=== PATIENT | female | born 1970 | race Caucasian/White ===

== ENCOUNTER 2019-05-08 11:10 | Inpatient (IN) ==
--- NOTE | 2019-04-25 08:43 | PAT Medication Instructions ---
Medication Instructions Date of Service April 25, 2019 Home Medications adalimumab [Humira] 40 mg SUBCUT Q14D ascorbic acid (vitamin C) [Vitamin C] 500 mg PO QAM cholecalciferol (vitamin D3) [Vitamin D3] 2,000 unit PO QAM cyanocobalamin (vitamin B-12) [Vitamin B-12] 2,500 mcg SUBLINGUAL QAM cyclobenzaprine 10 mg PO HS diclofenac sodium 75 mg PO BID fluoxetine 10 mg PO QAM furosemide [Lasix] 20 mg PO QAM lisinopril 10 mg PO QAM multivitamin 1 tab PO QAM omeprazole 20 mg PO QAM tramadol 50 mg PO Q6H PRN turmeric root extract 500 mg PO DAILY ASK your surgeon for instructions diclofenac sodium 75 mg PO BID ASK your prescriber and surgeon adalimumab [Humira] 40 mg SUBCUT Q14D STOP taking 2 weeks before surgery (or as soon as possible if surgery is within 2 weeks) turmeric root extract 500 mg PO DAILY DO NOT take the morning of surgery ascorbic acid (vitamin C) [Vitamin C] 500 mg PO QAM cholecalciferol (vitamin D3) [Vitamin D3] 2,000 unit PO QAM cyanocobalamin (vitamin B-12) [Vitamin B-12] 2,500 mcg SUBLINGUAL QAM furosemide [Lasix] 20 mg PO QAM lisinopril 10 mg PO QAM multivitamin 1 tab PO QAM Take morning of surgery With a small sip of water, OTHERWISE NOTHING TO EAT OR DRINK AFTER MIDNIGHT: fluoxetine 10 mg PO QAM omeprazole 20 mg PO QAM tramadol 50 mg PO Q6H PRN (okay to take up to 4 hours prior to surgery if needed) Take evening before surgery cyclobenzaprine 10 mg PO HS tramadol 50 mg PO Q6H PRN (if needed) Other Notes If you have any questions please call us at [phone] or [phone] or [phone] or [phone]
--- NOTE | 2019-04-26 09:04 | Anesthesiology Consultation ---
Date of Service April 26, 2019 Assessment & Plan (1) Encounter for pre-operative examination: - Check test AM DOS Chart Review Chart Review: Pending: Refer to Additional Notes / Consult section (pending p reop testing (labs, c-spine xray)) and Patient seen in Pre Admission Testing Teaching & Discussion Pre-Anesthesia Teaching/Discussion Notes: Instructed NPO after midnight before surgery,except medications with 15 cc of water. Medication instructions provided according to the PAT guidelines. History Surgery Operation Date: 05/08/19 13:05 Proposed Procedures p L4-S1 Decompression, L3-L4 Possible Fusion with Spinal Cord Monitoring - Fermin Richardson DO Height/Weight Height: 5 ft 3 in Weight: 109.8 kg Allergies Allergy/AdvReac Type Severity Reaction Status Date / Time gabapentin Allergy Mild itchy rash Verified 04/20/19 13:25 latex Allergy Mild itchy rash Verified 04/20/19 13:25 Medications Home Medications Medication Instructions Recorded Confirmed Last Taken adalimumab [Humira] 40 mg SUBCUT Q14D 04/20/19 04/20/19 04/02/19 ascorbic acid (vitamin C) [Vitamin 500 mg PO QAM 04/20/19 04/20/19 Unknown C] cholecalciferol (vitamin D3) 2,000 unit PO QAM 04/20/19 04/20/19 Unknown [Vitamin D3] cyanocobalamin (vitamin B-12) 2,500 mcg SUBLINGUAL QAM 04/20/19 04/20/19 Unknown [Vitamin B-12] cyclobenzaprine 10 mg PO HS 04/20/19 04/20/19 Unknown diclofenac sodium 75 mg PO BID 04/20/19 04/20/19 Unknown fluoxetine 10 mg PO QAM 04/20/19 04/20/19 Unknown furosemide [Lasix] 20 mg PO QAM 04/20/19 04/20/19 Unknown lisinopril 10 mg PO QAM 04/20/19 04/20/19 Unknown multivitamin 1 tab PO QAM 04/20/19 04/20/19 Unknown omeprazole 20 mg PO QAM 04/20/19 04/20/19 Unknown tramadol 50 mg PO Q6H PRN 04/20/19 04/20/19 Unknown turmeric root extract 500 mg PO DAILY 04/20/19 04/20/19 Unknown Past Medical History Medical History Ankylosing spondylitis Chronic back pain Fatty liver disease, nonalcoholic GERD (gastroesophageal reflux disease) controlled GI bleed 2017 s/p EGD/colonoscopy with biopsy Hypertension Interstitial cystitis stable Migraine hx Morbid obesity Osteoarthritis PSA (psoriatic arthritis) Rheumatoid arthritis Exercise / Class Metabolic Activity II 4-5 Yardwork/Stairs/Walk up hill Past Family History Family History Aunt FHx: breast cancer, Onset Age: 70 Sister FHx: breast cancer, Onset Age: 36 Family history of diabetes mellitus Father Family history of diabetes mellitus FHx: coronary artery disease Mother Family history of diabetes mellitus Grandmother (Paternal) Family history of diabetes mellitus Grandfather (Paternal) Family history of diabetes mellitus Brother Family history of diabetes mellitus Past Surgical History Surgical History History of breast biopsy History of cholecystectomy History of colonoscopy History of cystoscopy History of dilatation and curettage History of esophagogastroduodenoscopy (EGD) Hx of lumpectomy x2 on right (benign) S/P cervical spinal fusion ACDF x2 levels (unsure of which levels) S/P endometrial ablation S/P lymph node biopsy right axillary (benign) Past Anesthesia History No Hx of Anesthesia Complications (except PONV) and No Family Hx of Anesthesia Complications History of PONV History of PONV (no improvement when scope patch used previously) and Hx of Motion Sickness Social History Smoking Status: Never smoker Do You Dip or Chew Tobacco: No Hx Alcohol Use: No Hx Substance Use: No substance use type: does not use Review of Systems Reflux controlled. Patient denies chest pain, shortness of breath, dyspnea on exertion, cough, wheezing, palpitations. Physical Exam Vital Signs VITALS BP 125/84 P 81 TEMP 97.9 SP02 99%RA RESP 20 PHYSICAL Full neck and c-spine range of motion. Full TMJ range of motion. TMD 4 finger breaths Mallampati Score 1 Dentition: upper partial Lungs: clear throughout to auscultation Cardiac: regular rate and rhythm, no murmurs noted Spine: normal Carotid arteries: negative bruit Extremities: no edema Testing Electrocardiogram Date: 09/13/18 SR at 76bpm. LAD. RBBB. Voltage criteria for LVH. PRWP. Chest X-Ray Date: 09/13/18 Findings: + NAD
[2019-04-26 10:03] LABS: Basophils # (auto) 0.03 K/uL (0-0.2); Basophils % (auto) 0.3 %; Eosinophils # (auto) 0.28 K/uL (0-0.5); Eosinophils % (auto) 2.9 %; Hematocrit (blood only) 40.2 % (37-47); Hemoglobin 13.6 g/dL (12.0-16.0); Immature Granulocytes # (auto) 0.02 K/uL (0.00-0.02); Immature Granulocytes % (auto) 0.2 %; Lymphocytes # (auto) 2.78 K/uL (1.2-3.4); Lymphocytes % (auto) 28.6 %; Mean Corpuscular Hemoglobin 32.2 pg (25-34); Mean Corpuscular Hgb Conc 33.8 g/dL (32-36); Mean Corpuscular Volume 95.3 fL (80-100); Monocytes # (auto) 1.23 K/uL (0.11-0.59); Monocytes % (auto) 12.6 %; Neutrophils # (auto) 5.39 K/uL (1.4-6.5); Neutrophils % (auto) 55.4 %; Platelet Count 230 K/uL (130-400); RDW Coefficient of Variation 13.7 % (11.5-14.5); RDW Standard Deviation 47.6 fL (36.4-46.3); Red Blood Count 4.22 M/uL (4.2-5.4); White Blood Count 9.73 K/uL (4.8-10.8)
[2019-04-26 10:05] LABS: Appearance Urine Clear (Clear); Bilirubin Urine Negative (Negative); Blood Urine Negative (Negative); Color Urine Yellow; Glucose Urine UA Negative (Negative); Ketones Urine Negative (Negative); Leukocyte Esterase Urine Negative (Negative); Nitrite Urine Negative (Negative); Protein Urine Negative (Negative); Specific Gravity Urine 1.022 (1.000-1.030); Urobilinogen Urine Negative (Negative); pH Urine 5.5 (4.5-7.5)
[2019-04-26 10:10] LABS: Calcium 9.3 mg/dl (8.5-10.1); Est GFR (African American) 69.8; Est GFR (Non-African American) 60.2; Potassium 4.6 mmol/L (3.5-5.1)
--- NOTE | 2019-04-26 10:12 | XRay Report ---
LATERAL RADIOGRAPHS OF THE CERVICAL SPINE, INCLUDING FLEXION AND EXTENSION CLINICAL HISTORY: RHEUMATOID ARTHRITIS COMPARISON STUDY: No previous studies for comparison. FINDINGS: Postoperative findings consistent with a C5-C6 and C6-C7 discectomy with anterior fusion ar e noted. There are surgical clips within the lower neck. Alignment of the cervical spine is anatomic without evidence for instability during flexion or extension. Vertebral body heights are maintained. There is no fracture. No suspicious osseous lesion is noted. IMPRESSION: 1. No evidence for cervical spine instability during flexion or extension. 2. Status post C5-C7 anterior discectomy and fusion. Electronically signed by: Juan Ruiz M.D. 04/26/2019 10:11 AM
[2019-04-26 10:18] LABS: Partial Thromboplastin Ratio 0.9; Partial Thromboplastin Time 24.3 Seconds (21.0-31.0); Prothrombin Time 10.1 Seconds (9.0-12.0)
[~2019-05-08 11:10] MED LIST: ACETAMINOPHEN 500 MG TAB PO SCH; CEFAZOLIN 2000MG 2,000 MG/15 ML SYR IV SCH; CeleBREX 200 MG CAP PO SCH; GABAPENTIN 900 MG DOSE PO SCH; LR 15ML/HR IV SCH
[2019-05-08] MEDS ORDERED: MIDAZOLAM HCL 1 MG/ML 2ML VIAL ONE (11:15)
[2019-05-08] MEDS ORDERED: fentaNYL citrate 100 MCG/2 ML VIAL ONE (11:15)
[2019-05-08] MEDS ORDERED: HYDROmorphone INJ 2 MG/ML SYR/VIAL ONE (11:16)
[2019-05-08] MEDS ORDERED: KETAMINE HCL INJ 50 MG/ML 10 ML VIAL ONE (11:16)
[2019-05-08] MEDS ORDERED: GLYCOPYRROLATE 0.2 MG/ML VIAL ONE (11:19)
[2019-05-08] MEDS ORDERED: ROCURONIUM BROMIDE 10 MG/ML 5 ML VIAL ONE (11:19)
[2019-05-08] MEDS ORDERED: LIDOCAINE HCL 2% 2 ML VIAL/AMP(20MG/ML) INFIL ONE (11:19)
[2019-05-08] MEDS ORDERED: ONDANSETRON INJ 2 MG/ML 2 ML VIAL ONE (11:19)
[2019-05-08] MEDS ORDERED: NEOSTIGMINE METHYLSULFATE 1 MG/ML 10ML VIAL ONE (11:19)
[2019-05-08] MEDS ORDERED: DEXAMETHASONE SOD INJ 4 MG/ML VIAL ONE (11:19)
[2019-05-08] MEDS ORDERED: PROPOFOL IV EMULSION 10 MG/ML 20 ML VIAL IV ONE (11:19)
--- NOTE | 2019-05-08 12:18 | History & Physical Bridge Note ---
Date of Service May 08, 2019 History & Physical Bridge Note I have examined the patient, reviewed the History & Physical and in the interval since the performance of the History & Physical I have noted the following changes of clinical significance: no changes noted
--- NOTE | 2019-05-08 12:20 | History & Physical Report ---
Date of Service May 08, 2019 Assessment & Plan (1) Spinal stenosis, lumbar region with neurogenic claudication: L4-S1 decompression and fusion possible L3-4 Present on Admission?: Yes History of Present Illness Chief Complaint: Back and leg pain Primary Care Provider: Kayleigh Lugo DO This is a 48-year-old female who presents with chronic persistent back and leg pain. After failing extensive course of nonoperative care is here for surgical intervention. Allergies Allergy/AdvReac Type Severity Reaction Status Date / Time meloxicam [From Mobic] Allergy Intermediate Rash Verified 05/08/19 12:19 gabapentin Allergy Mild itchy rash Verified 05/08/19 12:18 latex Allergy Mild itchy rash Verified 05/08/19 12:18 Home Medications Home Medications Medication Instructions Recorded Confirmed Type adalimumab [Humira] 40 mg SUBCUT Q14D 04/20/19 04/20/19 History ascorbic acid (vitamin C) [Vitamin 500 mg PO QAM 04/20/19 04/20/19 History C] cholecalciferol (vitamin D3) 2,000 unit PO QAM 04/20/19 04/20/19 History [Vitamin D3] cyanocobalamin (vitamin B-12) 2,500 mcg SUBLINGUAL QAM 04/20/19 04/20/19 History [Vitamin B-12] cyclobenzaprine 10 mg PO HS 04/20/19 04/20/19 History diclofenac sodium 75 mg PO BID 04/20/19 04/20/19 History fluoxetine 10 mg PO QAM 04/20/19 04/20/19 History furosemide [Lasix] 20 mg PO QAM 04/20/19 04/20/19 History lisinopril 10 mg PO QAM 04/20/19 04/20/19 History multivitamin 1 tab PO QAM 04/20/19 04/20/19 History omeprazole 20 mg PO QAM 04/20/19 04/20/19 History tramadol 50 mg PO Q6H PRN 04/20/19 04/20/19 History turmeric root extract 500 mg PO DAILY 04/20/19 04/20/19 History Past Med/Surg History Medical History Ankylosing spondylitis Chronic back pain Fatty liver disease, nonalcoholic GERD (gastroesophageal reflux disease) controlled GI bleed 2018 s/p EGD/colonoscopy with biopsy Hypertension Interstitial cystitis stable Migraine hx Morbid obesity Osteoarthritis PSA (psoriatic arthritis) Rheumatoid arthritis Surgical History History of breast biopsy History of cholecystectomy History of colonoscopy History of cystoscopy History of dilatation and curettage History of esophagogastroduodenoscopy (EGD) Hx of lumpectomy x2 on right (benign) S/P cervical spinal fusion ACDF x2 levels (unsure of which levels) S/P endometrial ablation S/P lymph node biopsy right axillary (benign) Family History Aunt FHx: breast cancer, Onset Age: 70 Sister FHx: breast cancer, Onset Age: 36 Family history of diabetes mellitus Father Family history of diabetes mellitus FHx: coronary artery disease Mother Family history of diabetes mellitus Grandmother (Paternal) Family history of diabetes mellitus Grandfather (Paternal) Family history of diabetes mellitus Brother Family history of diabetes mellitus Social History Preferred Language: [place] Communication Ability: Effective Network Firewall Engineer Required: No Beliefs That Will Affect Care: None Current Living Situation: Alone Other Information That Helps Us Care for You: No Feels Safe at Home: Yes Safety Concerns: Feels Safe At This Time Smoking Status: Never smoker Do You Dip or Chew Tobacco: No ; Second Hand Exposure: No ; Tobacco Cessation Education Requested by Patient: No Hx Alcohol Use: No Hx Substance Use: No Physical Exam Physical Exam: Patient is alert and oriented neurologically intact.
[2019-05-08] MEDS ORDERED: ePHEDrine sulfate 50 MG/ML AMP IV PRN (12:28)
[2019-05-08] MEDS ORDERED: MEPERIDINE HCL 25 MG/ML CARP IV PRN (12:28)
[2019-05-08] MEDS ORDERED: HYDROmorphone INJ 1 MG/ML SYRINGE IV PRN ×2 (12:28→16:29)
[2019-05-08] MEDS ORDERED: LABETALOL HCL IV 5 MG/ML 20ML IV PRN (12:28)
[2019-05-08] MEDS ORDERED: PHENYLEPHRINE 100MCG/ML 5ML SYR IV PRN (12:28)
[2019-05-08] MEDS ORDERED: ONDANSETRON INJ 2 MG/ML 2 ML VIAL IV PRN ×2 (12:28→16:29)
[2019-05-08] MEDS ORDERED: ATROPINE SULFATE 0.1 MG/ML 10ML SYR IV PRN (12:28)
[2019-05-08] MEDS ORDERED: fentaNYL citrate 100 MCG/2 ML VIAL IV PRN (12:28)
[2019-05-08] MEDS ORDERED: BACITRACIN INJ 50,000 UNIT VIAL ONE (12:32)
[2019-05-08] MEDS ORDERED: BUPIVACAINE/EPINEPHRINE 0.5% MPF 1:200,000 30 ML VIAL ONE (12:32)
[2019-05-08] MEDS ORDERED: SCOPOLAMINE 1.5 MG TDSY ONE (12:33)
[2019-05-08] MEDS ORDERED: SCOPOLAMINE 1.5 MG TDSY TD SCH (12:45)
[2019-05-08] MEDS ORDERED: PHENYLEPHRINE 100MCG/ML 5ML SYR ONE (13:11)
[2019-05-08] MEDS ORDERED: FLOSEAL HEMOSTATIC MATRIX 10ML TOP ONE (13:15)
[2019-05-08] MEDS ORDERED: PHENYLEPHRINE HCL 10 MG/ML VIAL ONE (13:44)
[2019-05-08] MEDS ORDERED: ePHEDrine sulfate 50 MG/ML SYR ONE (13:44)
--- NOTE | 2019-05-08 15:02 | Operative Report ---
Post Operative Report Pre & Post Diagnosis Operation Date: 05/08/19 13:05 Pre-Op Diagnosis: Spinal stenosis, lumbar region with neurogenic claudication Morbid obesity Post-Op Diagnosis: Same I identified the patient and participated in the time-out.: Yes Procedure Operation Date: 05/08/19 13:05 Actual Procedures #1 lumbar decompression with bilateral medial facetectomies foraminotomies L3-4 L4-5 L5-S1. #2 posterior spinal fusion L4-5 L5-S1. #3 placed posterior instrumentation L4-5 L5-S1. #4 interbody fusion L4-5 L5-S1. #5 placement of peek cage 12 x 26 mm L4-5 and L5-S1. #6 placement of local autograft posterior gutters. #7 placement infuse collagen sponge, mass graft and posterior gutters and ostial amp in the interbody spaces. Surgeon Fermin Richardson, Validation Architect Trish Alvarado Estimated Blood Loss 10 Findings See Below The patient is 5 foot 3 inches tall weighing over 109 kg with a BMI in excess of 42. The patient's body habitus did add significant technical difficulty throughout the procedure requiring her deepest retractors and longer instruments in order to perform the procedure. This added at least 50% increase in operative time. Specimens None Indications This is a 48-year-old female presents with above-mentioned diagnosis after failing extensive course of nonoperative care she is here for surgical intervention. Description of Procedure Patient was met with identified and informed consent obtained. Patient was then taken to the operative suite underwent intubation placed in the prone position the Tobi table on top of the Gavin frame. All bony prominences well-padded eyes inspected to ensure no external pressure placed upon the peer at this point the lumbar spine was prepped and draped in the normal sterile fashion. Sharp dissection with the assistance of Bovie cautery was performed down to and exposing the lamina and transverse processes of L4-L5 and sacral ala bilaterally. From a caudal to cephalad fashion complete laminectomy of L5 L4 and partial laminectomy of L3 was performed including medial facetectomies and foraminotomies addressing severe stenosis. Pedicle screws were then placed in L4-L5 and S1 levels bilaterally with assistance of fluoroscopy the purposes nathan placed. By way of a trans-foraminal approach on the right a complete discectomy of L5-S1 is performed endplates curetted to subcortical being bone and a 12 x 26 mill meter peek cage filled with osteo-amp bone graft tapped in position. I then proceeded to L4-[address] of a transforaminal approach on the right complete discectomy performed endplates curetted to subcortical bleeding bone and again a 12 x 26 mm peek cage filled with ostium bone graft tapped in position. The rods were then locked in final position bilaterally. The transverse processes of L4 L5 and sacral ala bur to subcortical bleeding bone. Infuse collagen sponge master graft and local autograft placed in the posterior lateral gutters. 15 round JAH drain inserted. Incision was then closed with 1 Vicryl in the fascia 2-0 Vicryl subcutaneous layer and 4-0 Monocryl for final skin closure. Steri-Strip sterile dressings placed. Patient will continue to PACU stable condition. Please note Trish Alvarado present all the entire procedure involved the patient positioning complex portions of the surgery and final skin closure. Lastly spinal cord monitoring was utilized that the procedure no changes noted. I attest to the content of the Intraoperative Record and any orders documented therein. Any exceptions are noted below.
--- NOTE | 2019-05-08 15:02 | Fluoroscopy Report ---
FL lumbar spine 2-3V CLINICAL HISTORY: L4-S1 DECOMPRESSION AND FUSION POSSIBLE L3-L4 COMPARISON STUDY: None FLUOROSCOPY TIME: 26 seconds NUMBER OF FLUOROSCOPIC IMAGES: 2 FINDINGS: Findings consistent laminectomy and fusion from L4 through S1. Disc spaces are present. IMPRESSION: Image intensifier support for lumbar laminectomy and fusion. The above report was generated using voice recognition software. It may contain grammatical, syntax or spelling errors. Electronically signed by: Shayne Chen M.D. 05/08/2019 3:01 PM
--- NOTE | 2019-05-08 15:50 | Anesthesiology Progress Note ---
Date of Service May 08, 2019 Anesthesia Post Procedure Vital Signs Vital Signs: Temp Pulse Pulse Resp BP BP Pulse Ox 05/08/19 15:40 116 H 17 135/84 97 05/08/19 15:30 103 H 17 126/79 97 05/08/19 15:22 36.8 C 100 H 18 135/82 98 05/08/19 12:23 36.7 C 97 H 18 171/90 H 96 Pain Intensity Back: Pain Intensity: 8 Right Hip: Pain Intensity: 8 Transfer of Care Handoff Completed per policy Notes Mental Status: alert / awake / arousable and participated in evaluation Patient Amnestic to Procedure: Yes Nausea / Vomiting: adequately controlled Pain: adequately controlled Airway Patency, RR, SpO2: stable & adequate BP & HR: stable & adequate Hydration State: stable & adequate Anesthetic Complications: no major complications apparent and Pt Satisfied with anesthetic care
[2019-05-08] MEDS ORDERED: CHECK SCOPOLAMINE PATCH PLACEMENT SCH (16:00)
[2019-05-08] MEDS ORDERED: LORazepam 0.5 MG/1 ML VIAL IV PRN (16:29)
[2019-05-08] MEDS ORDERED: DO NOT ADMINISTER PNEUMOCOCCAL VACCINE PRN (16:29)
[2019-05-08] MEDS ORDERED: MAGNESIUM HYDROXIDE SUSP 30 ML UDC PO PRN (16:29)
[2019-05-08] MEDS ORDERED: NON-FORMULARY MEDICATION (Adalimumab [Humira] 40 MG) SQ SCH (16:29)
[2019-05-08] MEDS ORDERED: FAMOTIDINE 20 MG TAB PO PRN (16:29)
[2019-05-08] MEDS ORDERED: ONDANSETRON 4 MG OD TAB PO PRN (16:29)
[2019-05-08] MEDS ORDERED: LORazepam 0.5 MG TAB PO PRN (16:29)
[2019-05-08] MEDS ORDERED: BISACODYL 10 MG SUPP PR PRN (16:29)
[2019-05-08] MEDS ORDERED: METOCLOPRAMIDE HCL INJ 5 MG/ML 2 ML VIAL IV PRN (16:29)
[2019-05-08] MEDS ORDERED: HYDROmorphone INJ 0.5 MG/0.5 ML SYR IV PRN (16:29)
[2019-05-08] MEDS ORDERED: ALUMINUM/MAGNESIUM SUSP 30 ML UDC PO PRN (16:29)
[2019-05-08] MEDS ORDERED: SOD PHOSPHATE/SOD BIPHOSPHATE ENEMA 132 ML BTL PR PRN (16:29)
[2019-05-08] MEDS ORDERED: ACETAMINOPHEN 1,000 MG/100 ML VIAL IV PRN (16:29)
[2019-05-08] MEDS ORDERED: NALOXONE HCL 0.4 MG/1 ML VIAL/CARP IV PRN (16:29)
[2019-05-08] MEDS ORDERED: TRAMADOL HCL 50 MG TABLET PO PRN (16:29)
[2019-05-08] MEDS ORDERED: DO NOT ADMINISTER FLU VACCINE PRN (16:29)
[2019-05-08] MEDS ORDERED: PROMETHAZINE HCL 12.5 MG in SODIUM CHLORIDE 0.9% 50 ML IV PRN (16:29)
[2019-05-08] MEDS: KETOROLAC TROMETHAMINE 15 MG/ML VIAL IV SCH (17:48)
[2019-05-08] MEDS: LACTATED RINGER'S 1,000 ML IV SCH ×2 (19:51→21:43)
[2019-05-08] MEDS: CEFAZOLIN 2000MG 2,000 MG/15 ML SYR IV SCH (20:21)
[2019-05-08] MEDS: DOCUSATE SODIUM/SENNA 50/8.6MG TAB PO SCH (20:23)
[2019-05-08] MEDS: CYCLOBENZAPRINE HCL 10 MG TAB PO SCH (20:37)
[2019-05-09] MEDS: KETOROLAC TROMETHAMINE 15 MG/ML VIAL IV SCH ×3 (00:07→11:58)
[2019-05-09] MEDS: LACTATED RINGER'S 1,000 ML IV SCH (02:17)
[2019-05-09] MEDS: CEFAZOLIN 2000MG 2,000 MG/15 ML SYR IV SCH (05:09)
[2019-05-09] MEDS: ACETAMINOPHEN 500 MG TAB PO PRN (05:23)
[2019-05-09] MEDS: POLYETHYLENE (MIRALAX) 17 GM PACK PO SCH ×3 (05:24→17:20)
[2019-05-09 05:36] LABS: Hematocrit (blood only) 35.4 % (37-47); Hemoglobin 11.7 g/dL (12.0-16.0); Immature Granulocytes # (auto) 0.04 K/uL (0.00-0.02); Immature Granulocytes % (auto) 0.3 %; Lymphocytes # (auto) 1.63 K/uL (1.2-3.4); Lymphocytes % (auto) 12.2 %; Mean Corpuscular Hemoglobin 31.9 pg (25-34); Mean Corpuscular Hgb Conc 33.1 g/dL (32-36); Mean Corpuscular Volume 96.5 fL (80-100); Mean Platelet Volume 9.7 fL (7.4-10.4); Monocytes # (auto) 0.64 K/uL (0.11-0.59); Monocytes % (auto) 4.8 %; Neutrophils # (auto) 11.09 K/uL (1.4-6.5); Neutrophils % (auto) 82.7 %; Platelet Count 238 K/uL (130-400); RDW Coefficient of Variation 14.2 % (11.5-14.5); RDW Standard Deviation 49.7 fL (36.4-46.3); Red Blood Count 3.67 M/uL (4.2-5.4)
[2019-05-09 06:04] LABS: BUN Creatinine Ratio 16.1 (10-20); Calcium 8.3 mg/dl (8.5-10.1); Creatinine Clr Calc Pharmacy 105.1 ml/min; Est GFR (African American) 105.1; Est GFR (Non-African American) 90.7; Potassium 4.1 mmol/L (3.5-5.1)
--- NOTE | 2019-05-09 07:43 | Anesthesiology Progress Note ---
Date of Service May 09, 2019 Anesthesia Post Procedure Vital Signs Vital Signs: Temp Pulse Pulse Resp BP BP Pulse Ox 05/09/19 07:15 37.0 C 89 18 104/67 99 05/09/19 03:30 36.6 C 83 16 100/66 97 05/08/19 22:58 36.6 C 97 H 16 104/70 96 05/08/19 19:41 36.4 C L 103 H 17 116/79 98 05/08/19 18:18 36.5 C 101 H 16 106/71 99 05/08/19 17:24 36.4 C L 103 H 17 131/73 97 05/08/19 16:52 36.5 C 102 H 16 102/68 99 05/08/19 16:20 36.5 C 108 H 16 121/71 98 05/08/19 16:01 36.8 C 108 H 15 118/73 98 05/08/19 15:50 102 H 17 129/73 96 05/08/19 15:40 116 H 17 135/84 97 05/08/19 15:30 103 H 17 126/79 97 05/08/19 15:22 36.8 C 100 H 18 135/82 98 05/08/19 12:23 36.7 C 97 H 18 171/90 H 96 Pain Intensity Back: Pain Intensity: 8 Right Hip: Pain Intensity: 8 Notes Mental Status: alert / awake / arousable and participated in evaluation Patient Amnestic to Procedure: Yes Nausea / Vomiting: adequately controlled Pain: adequately controlled Airway Patency, RR, SpO2: stable & adequate BP & HR: stable & adequate Hydration State: stable & adequate Anesthetic Complications: no major complications apparent and Pt Satisfied with anesthetic care
[2019-05-09] MEDS: PANTOprazole 40 MG TAB PO SCH (08:47)
[2019-05-09] MEDS: FUROSEMIDE 20 MG TAB PO SCH (08:47)
[2019-05-09] MEDS: MULTIVITAMIN TAB PO SCH (08:47)
[2019-05-09] MEDS: ASCORBIC ACID 500 MG TAB PO SCH (08:48)
[2019-05-09] MEDS: FLUOXETINE HCL 10 MG CAP PO SCH (08:48)
[2019-05-09] MEDS: CHOLECALCIFEROL 1,000 UNITS TAB PO SCH (08:48)
[2019-05-09] MEDS: CYANOCOBALAMIN (VITAMIN B-12) 2,500 MCG TAB.SUBL SL SCH (08:48)
[2019-05-09] MEDS: LISINOPRIL 10 MG TAB PO SCH (08:49)
--- NOTE | 2019-05-09 09:58 | Orthopedic Progress Note ---
Date of Service May 09, 2019 Assessment & Plan (1) Spinal stenosis, lumbar region with neurogenic claudication: Patient is status post lumbar decompression and fusion will initiate physical therapy monitor her JAH output hopefully discharge home next few days. Present on Admission?: Yes Subjective Back pain controlled leg pain markedly improved. She is describing some numbness to the right foot. Physical Exam Physical Exam: On exam she has regional strength testing. She appears comfortable. Results & Data Vital Signs (Past 12 Hours) Vital Signs Temp Pulse Resp BP BP Pulse Ox 05/09/19 07:15 37.0 C 89 18 104/67 99 05/09/19 03:30 36.6 C 83 16 100/66 97 05/08/19 22:58 36.6 C 97 H 16 104/70 96
[2019-05-09] MEDS: OXYCODONE HCL IR 5 MG TAB (IMMEDIATE RELEASE) PO PRN ×3 (11:58→20:48)
[2019-05-09] MEDS: DOCUSATE SODIUM/SENNA 50/8.6MG TAB PO SCH (20:45)
[2019-05-09] MEDS: CYCLOBENZAPRINE HCL 10 MG TAB PO SCH (20:48)
[2019-05-10] MEDS: POLYETHYLENE (MIRALAX) 17 GM PACK PO SCH ×5 (00:15→23:42)
[2019-05-10] MEDS: OXYCODONE HCL IR 5 MG TAB (IMMEDIATE RELEASE) PO PRN ×5 (00:56→23:45)
[2019-05-10] MEDS: ACETAMINOPHEN 500 MG TAB PO PRN ×2 (00:56→16:21)
[2019-05-10] MEDS: FUROSEMIDE 20 MG TAB PO SCH (07:33)
[2019-05-10] MEDS: PANTOprazole 40 MG TAB PO SCH (07:34)
[2019-05-10] MEDS: MULTIVITAMIN TAB PO SCH (07:34)
[2019-05-10] MEDS: FLUOXETINE HCL 10 MG CAP PO SCH (07:34)
[2019-05-10] MEDS: ASCORBIC ACID 500 MG TAB PO SCH (07:35)
[2019-05-10] MEDS: CYANOCOBALAMIN (VITAMIN B-12) 2,500 MCG TAB.SUBL SL SCH (07:35)
[2019-05-10] MEDS: CHOLECALCIFEROL 1,000 UNITS TAB PO SCH (07:36)
[2019-05-10] MEDS: LISINOPRIL 10 MG TAB PO SCH (07:36)
--- NOTE | 2019-05-10 14:13 | Orthopedic Progress Note ---
Date of Service May 10, 2019 Assessment & Plan (1) Spinal stenosis, lumbar region with neurogenic claudication: Patient is progressing appropriately. We will assess her in a.m. and most likely discharge home tomorrow. Present on Admission?: Yes Subjective Patient's back pain is controlled leg symptoms improving. Physical Exam Physical Exam: Patient is in the chair at the bedside. She is more comfortable. She demonstrates some deficit right dorsiflexion compared to the left. Otherwise strength intact. Results & Data Vital Signs (Past 12 Hours) Vital Signs Temp Pulse Resp BP Pulse Ox 05/10/19 06:13 36.7 C 93 H 16 96/64 L 95
[2019-05-10] MEDS: CYCLOBENZAPRINE HCL 10 MG TAB PO SCH (21:01)
[2019-05-10] MEDS: DOCUSATE SODIUM/SENNA 50/8.6MG TAB PO SCH (21:02)
[2019-05-11] MEDS: OXYCODONE HCL IR 5 MG TAB (IMMEDIATE RELEASE) PO PRN ×2 (03:58→08:48)
[2019-05-11] MEDS ORDERED: Nursing to Pharmacy Communication ONE (04:49)
[2019-05-11] MEDS: LISINOPRIL 10 MG TAB PO SCH (08:44)
[2019-05-11] MEDS: CHOLECALCIFEROL 1,000 UNITS TAB PO SCH (08:44)
[2019-05-11] MEDS: FUROSEMIDE 20 MG TAB PO SCH (08:44)
[2019-05-11] MEDS: PANTOprazole 40 MG TAB PO SCH (08:44)
[2019-05-11] MEDS: ASCORBIC ACID 500 MG TAB PO SCH (08:44)
[2019-05-11] MEDS: FLUOXETINE HCL 10 MG CAP PO SCH (08:44)
[2019-05-11] MEDS: MULTIVITAMIN TAB PO SCH (08:44)
[2019-05-11] MEDS: CYANOCOBALAMIN (VITAMIN B-12) 2,500 MCG TAB.SUBL SL SCH (08:44)
--- NOTE | 2019-05-11 10:13 | Discharge Summary ---
Date of Service May 11, 2019 Admission HPI Per Admitting Provider This is a 48-year-old female who presents with chronic persistent back and leg pain. After failing extensive course of nonoperative care is here for surgical intervention. Principal Diagnosis Lumbar spinal stenosis with neurogenic claudication Discharge Data Allergies Allergy/AdvReac Type Severity Reaction Status Date / Time meloxicam [From Mobic] Allergy Intermediate Rash Verified 05/08/19 12:19 gabapentin Allergy Mild itchy rash Verified 05/08/19 12:18 latex Allergy Mild itchy rash Verified 05/08/19 12:18 Consultations 05/08/19 16:29 Consult Case Management - Discharge Planning Routine Procedures Performed Operation Date: 05/08/19 13:05 Actual Procedures p L4-L5, L5-S1 Decompression and Fusion, Interbody Fusion L4-L5, L5-S1, with Spinal Cord Monitoring(Not Applicable) - Fermin Richardson DO Ordered Studies 05/08/19 13:05 FL fluoroscopy <1hr Routine FL lumbar spine 2-3V Routine Hospital Course (1) Spinal stenosis, lumbar region with neurogenic claudication: Patient underwent multilevel lumbar decompression fusion tolerated as well as taken orthopedic for postoperative. Postop day 1 she is up and ambulating she struggling with some weakness to the right dorsiflexion. She did however progressed nicely through postop day #2 postop day #3 JAH drain decreased probably. Pain well controlled. Subsequent discharge home. Discharge orders instructions from the chart for further review. Total Time Total Time Spent Total Time Spent (In Minutes): 20 minutes Discharge Plan Discharge Items Patient Disposition: Home - Self-Care Reason For Visit: Unspecified Thoracic, Thoracolumbar and Lumbosacra Discharge Diagnosis: Lumbar spinal stenosis with radiculopathy Activity: As commented below Non-emergency contact: Primary Care Provider Call non-emergency contact if: you have any medication questions Follow-up/Referrals: Kayleigh Lugo DO [Primary Care Provider] - Diet: Regular Addtl Attending Provider Instructions: ACTIVITY RECOMMENDATIONS: SELF CARE INSTRUCTIONS AFTER THORACIC/LUMBAR FUSIONS 1. You may walk to your tolerance. It is good exercise for your legs and back. Expect some back and intermittent leg aches and pains. 2. You may perform "counter-top" level activities (make a sandwich, gladys with a project, etc.). 3. No bending or lifting of more than 10 pounds or back twisting of any nature (roll like a log when turning in bed). 4. You may ride in a car for 20-30 minutes at a time. No driving until after your first visit with your doctor. 5. Frequent changes of position and restricting sitting to 30 minutes at a time will help limit the amount of back spasms and stiffness you may experience. 6. You may discontinue the use of ambulatory aids (cane, crutches, etc.) once your strength and confidence allow. 7. You may space engineer the shower and let water strike your incision when you arrive home at least once daily. Do not take a tub bath, sit in a hot tub or go into a swimming pool until after your first recheck in the office. SPECIAL CARE INSTRUCTIONS: VERY IMPORTANT TO READ AND REVIEW A. Your surgical incision has been closed with a cosmetic suture under the skin that will dissolve in about 6 weeks. In 14 days, you can use a pair of clean scissors and cut the suture that is left outside of the skin at the ends of your incision. 1. The small skin tapes can be removed 7 days after surgery if they have not fallen off by that point. 2. You may keep the wound open to air as much as possible to promote healing after post-op day number 5 unless told otherwise by your doctor. 3. If you think the wound looks like it is becoming infected (redness or worsening drainage) and/or you are experiencing fever, chill or worsening back pain and muscle spasms, contact the office so that we may evaluate you as soon as possible. B. Complications are uncommon, but please contact us if you have any signs or symptoms of: 1. wound infection (fever higher than 102.5 degrees F, redness, separation of wound, drainage, or increasing pain from the incision) 2. blood clots in legs (pain, swelling, redness and warmth in legs) 3. urinary tract infection (fever higher than 102.5 degrees F, burning upon urination or increased frequency of urination) 4. nerve problems (inability to walk on your toes or heels, numbness, loss of bowel or bladder control) 5. any other symptoms that concern you C. Please call the office at if you have any concerns or questions about your operation or recovery. D. No smoking! Smoking drastically decreases the chance of a solid fusion. E. Do not take any anti-inflammatory medications (Indocin, Advil, Motrin, Aspirin, Naprosyn, etc.) as these may inhibit the chance of a solid fusion. Tylenol is okay to take for pain. MANAGING PAIN AFTER SPINAL SURGERY 1. Narcotic medication is intended for short-term use and will be provided for surgical pain. Surgical pain usually lasts for a period of 4-6 weeks. Narcotic medication includes Percocet, Vicodin, Darvocet, Tylenol #3 or Lortab. 2. Longer-term pain is more appropriately treated with non-narcotic medication such as Tylenol ES. 3. Muscle spasm is not appropriately treated with narcotics. Muscle relaxers such as Soma, Flexeril or Skelaxin can be used along with Tylenol ES. 4. Remember that we all live with some "aches and pains". This is not unusual or uncommon after an injury or as we get older. a. Back pain is expected and may include muscle spasms for 4 to 6 weeks after surgery. The pain should gradually improve. If the pain worsens for no apparent reason, please contact the office. b. Intermittent leg pain may also be experienced and should not be concerned about unless it worsens for no apparent reason. If so, please contact the office. 5. We will provide appropriate medication within the normal guidelines of their prescribed use. We will also be very cautious and aware of potential abuse and extended duration of patients' medication needs. a. Pain medications are for your comfort and to assist with sleep and rest so that the tissue can heal. They are not provided in order to return to normal activity and should not be used through the day. To do so or worsening pain at night can result from ongoing tissue damage and development of tolerance to the prescribed medicine. 6. Please allow 2-3 days to process refills. Prescriptions will not be mailed but must be picked up at the office. FOLLOW UP VISIT: Keep your scheduled follow-up appointment. Any questions, please call the office at . Pending Studies at Discharge: No Stand-Alone Forms: [facility] [place], Opioid Pain Management, Smoking Cessation Medications and DC Order Prescriptions: New tramadol 50 mg tablet 50 mg PO Q6H PRN (Reason: pain, moderate) Qty: 30 RF: 0 oxycodone 5 mg tablet 5 mg PO Q6H PRN (Reason: pain, severe) Qty: 30 RF: 0 Continued multivitamin Tablet 1 tab PO QAM RF: 0 cyclobenzaprine 10 mg Tablet 10 mg PO HS RF: 0 cyanocobalamin (vitamin B-12) [Vitamin B-12] 2,500 mcg Tablet, Sublingual 2,500 mcg SUBLINGUAL QAM RF: 0 fluoxetine [Sarafem] 10 mg Tablet 10 mg PO QAM RF: 0 tramadol 50 mg Tablet 50 mg PO Q6H PRN (Reason: Pain) RF: 0 lisinopril 10 mg Tablet 10 mg PO QAM RF: 0 omeprazole 20 mg Capsule,Delayed Release(Dr/Ec) 20 mg PO QAM RF: 0 diclofenac sodium 75 mg Tablet,Delayed Release (Dr/Ec) 75 mg PO BID RF: 0 furosemide [Lasix] 20 mg Tablet 20 mg PO QAM RF: 0 ascorbic acid (vitamin C) [Vitamin C] 500 mg Tablet Extended Release 500 mg PO QAM RF: 0 cholecalciferol (vitamin D3) [Vitamin D3] 2,000 unit Capsule 2,000 unit PO QAM RF: 0 turmeric root extract 500 mg Capsule 500 mg PO DAILY RF: 0 Humira 40 mg/0.8 mL Syringe Kit 40 mg SUBCUT Q14D RF: 0 Discharge Orders: Discharge Order (Routine); Ordered 05/11/19 Ordered By: Fermin Chris/Other Patient Handouts: Surgery Prevent DVT After Admission Data Admit Date/Time: 05/08/19 15:06 Attending Provider: Fermin Richardson Admit Provider: Fermin Richardson Primary Care Provider: Kayleigh Lugo Other Interventions: Discharge Summary Assessment (RN) Last Done: 05/11/19 09:57
== END 2019-05-11 13:17 | disposition home or self-care (01) | DRG 454 ==
LOC: ASU 11:10 → 3E 15:06

== ENCOUNTER 2020-02-21 06:09 | Inpatient (IN) ==
--- NOTE | 2020-02-05 09:10 | PAT Medication Instructions ---
Medication Instructions Date of Service February 05, 2020 Home Medications Medication Instructions Recorded tramadol 50 mg PO Q6H PRN #30 tab 05/09/19 cyclobenzaprine 10 mg PO HS diclofenac sodium 75 mg PO BID fluoxetine [Sarafem] 10 mg PO QAM furosemide [Lasix] 20 mg PO QAM lisinopril 10 mg PO QAM multivitamin 1 tab PO QAM tramadol 50 mg PO Q6H PRN certolizumab pegol [Cimzia] 400 mg SUBCUT MONTHLY minocycline 100 mg PO BID ondansetron HCl [Zofran] 4 mg PO Q6H PRN pantoprazole 40 mg PO QAM pregabalin [Lyrica] 75 mg PO BID ASK your surgeon for instructions diclofenac sodium 75 mg PO BID ASK your prescriber and surgeon certolizumab pegol [Cimzia] 400 mg SUBCUT MONTHLY minocycline 100 mg PO BID DO NOT take the morning of surgery furosemide [Lasix] 20 mg PO QAM lisinopril 10 mg PO QAM multivitamin 1 tab PO QAM Take morning of surgery With a small sip of water, OTHERWISE NOTHING TO EAT OR DRINK AFTER MIDNIGHT: fluoxetine [Sarafem] 10 mg PO QAM tramadol 50 mg PO Q6H PRN (okay to take up to 4 hours prior to surgery if needed) ondansetron HCl [Zofran] 4 mg PO Q6H PRN (if needed) pantoprazole 40 mg PO QAM pregabalin [Lyrica] 75 mg PO BID Take evening before surgery cyclobenzaprine 10 mg PO HS tramadol 50 mg PO Q6H PRN (if needed) ondansetron HCl [Zofran] 4 mg PO Q6H PRN (if needed) pregabalin [Lyrica] 75 mg PO BID Other Notes If you have any questions please call us at [phone] or [phone] or [phone] or [phone]
--- NOTE | 2020-02-06 12:10 | Anesthesiology Consultation ---
Date of Service February 06, 2020 Assessment & Plan (1) Encounter for pre-operative examination: Per PAT assessment on 02/05: Travel screen negative. No known COVID-19 positive contacts (father tested "last week" d/t fever, chills- results were negative, dx UTI. No current COVID-19 related symptoms. Surgeon arranging preop COVID testing. Awaiting results. - Hx PONV: scopolamine patch ordered for AM DOS Chart Review Chart Review: Acceptable Risk for Surgery and Patient seen in Pre Admission Testing Teaching & Discussion Pre-Anesthesia Teaching/Discussion Notes: Instructed NPO after midnight before surgery,except medications with 15 cc of water. Medication instructions provided according to the [facility] guidelines. History Surgery Operation Date: 02/21/20 07:45 Proposed Procedures p L3-L4 Decompression and Fusion, L4-S1 Hardware Removal - Fermin Richardson, Height/Weight Height: 5 ft 3 in Weight: 119.7 kg Allergies Allergy/AdvReac Type Severity Reaction Status Date / Time meloxicam [From Mobic] Allergy Intermediate Rash Verified 01/31/20 13:21 gabapentin Allergy Mild itchy rash Verified 01/31/20 13:21 latex Allergy Mild itchy rash Verified 01/31/20 13:21 Medications Home Medications Medication Instructions Recorded Confirmed Last Taken cyclobenzaprine 10 mg PO HS 04/20/19 01/31/20 05/06/19 diclofenac sodium 75 mg PO BID 04/20/19 01/31/20 05/06/19 fluoxetine [Sarafem] 10 mg PO QAM 04/20/19 01/31/20 05/07/19 09:00 furosemide [Lasix] 20 mg PO QAM 04/20/19 01/31/20 05/07/19 09:00 lisinopril 10 mg PO QAM 04/20/19 01/31/20 05/07/19 09:00 multivitamin 1 tab PO QAM 04/20/19 01/31/20 05/01/19 tramadol 50 mg PO Q6H PRN #30 tab 05/09/19 01/31/20 Unknown certolizumab pegol [Cimzia] 400 mg SUBCUT MONTHLY 01/31/20 01/31/20 Unknown minocycline 100 mg PO BID 01/31/20 01/31/20 Unknown ondansetron HCl [Zofran] 4 mg PO Q6H PRN 01/31/20 01/31/20 Unknown pantoprazole 40 mg PO QAM 01/31/20 01/31/20 Unknown pregabalin [Lyrica] 75 mg PO BID 01/31/20 01/31/20 Unknown Past Medical History Medical History Acne on Minocycline Ankylosing spondylitis Chronic back pain Fatty liver disease, nonalcoholic GERD (gastroesophageal reflux disease) controlled GI bleed 2017 s/p EGD/colonoscopy with biopsy Hypertension Interstitial cystitis stable Migraine hx Morbid obesity Osteoarthritis PSA (psoriatic arthritis) Rheumatoid arthritis Exercise / Class Metabolic Activity III < 4 Walking/Shop/Light housework Past Family History Family History Aunt FHx: breast cancer, Onset Age: 70 Sister FHx: breast cancer, Onset Age: 36 Family history of diabetes mellitus Father Family history of diabetes mellitus FHx: coronary artery disease Mother Family history of diabetes mellitus Slow to wake up after anesthesia Grandmother (Paternal) Family history of diabetes mellitus Grandfather (Paternal) Family history of diabetes mellitus Brother Family history of diabetes mellitus Past Surgical History Surgical History History of breast biopsy History of cholecystectomy History of colonoscopy History of cystoscopy History of dilatation and curettage History of esophagogastroduodenoscopy (EGD) History of lumbar fusion L4-S1 decompression/fusion: 05/08/19: Grade view 1, Webb#2, ett 7.5 at [facility] Hx of lumpectomy x2 on right (benign) S/P cervical spinal fusion ACDF x2 levels (unsure of which levels); limited ROM to right side S/P endometrial ablation S/P lymph node biopsy right axillary (benign) Past Anesthesia History No Hx of Anesthesia Complications (except PONV) Mother: "slow to wake" History of PONV History of PONV (multiple times, no issues when scope patch used/with most recent lumbar fusion 04/2019) and Hx of Motion Sickness Social History Smoking Status: Never smoker Do You Dip or Chew Tobacco: No Hx Alcohol Use: No Hx Substance Use: No substance use type: does not use Review of Systems Did have previous wheezing (not current issue). Patient denies chest pain, shortness of breath, fever, chills, cough, palpitations. Physical Exam Vital Signs VITALS BP 126/84 P 81 TEMP 98.0 SP02 98%RA RESP 18 PHYSICAL Full neck and c-spine range of motion. Full TMJ range of motion. TMD 4 finger breaths Mallampati Score 1 Dentition: upper partial Lungs: clear throughout to auscultation Cardiac: regular rate and rhythm, no murmurs noted Spine: normal Carotid arteries: negative bruit Extremities: non-pitting edema Testing Laboratory Results 02/06/20 12:37 02/06/20 12:37 PT 11.0 Seconds (9.0-12.0) 02/06/20 12:37 INR 1.0 (0.9-1.1) 02/06/20 12:37 APTT 27.0 Seconds (21.0-31.0) 02/06/20 12:37 Urine Color Yellow 02/06/20 12:37 Urine Appearance Clear (Clear) 02/06/20 12:37 Urine pH 5.0 (4.5-7.5) 02/06/20 12:37 Ur Specific [place] 1.021 (1.000-1.030) 02/06/20 12:37 Urine Protein Negative (Negative) 02/06/20 12:37 Urine Glucose (UA) Negative (Negative) 02/06/20 12:37 Urine Ketones Negative (Negative) 02/06/20 12:37 Urine Nitrite Negative (Negative) 02/06/20 12:37 Ur Leukocyte Esterase Negative (Negative) 02/06/20 12:37 Blood Type A Positive 02/06/20 12:37 Antibody Screen NEGATIVE 02/06/20 12:37 Electrocardiogram Date: 02/06/20 NSR at 80bpm. LAD. RBBB. unconfirmed report. Chest X-Ray Date: 02/06/20 Findings: + NAD Cervical Spine Date: 04/26/19 No evidence for cervical spine instability during flexion or extension. Status post C5-C7 anterior discectomy and fusion.
--- NOTE | 2020-02-06 13:46 | XRay Report ---
XR chest Pre-admission PA/Lat CLINICAL HISTORY: pat preoperative COMPARISON STUDY: No previous studies for comparison. FINDINGS: The bones soft tissues and hemidiaphragms are normal. The cardiomediastinal silhouette is n ormal. The lungs are clear. The pulmonary vasculature is normal. IMPRESSION: Negative chest. ACT 112: Negative or not required by law. The above report was generated using voice recognition software. It may contain grammatical, syntax or spelling errors. Electronically signed by: Shayne Chen M.D. 02/06/2020 1:45 PM
[2020-02-06 14:04] LABS: Basophils # (auto) 0.02 K/uL (0-0.2); Basophils % (auto) 0.2 %; Eosinophils # (auto) 0.27 K/uL (0-0.5); Eosinophils % (auto) 3.2 %; Hematocrit (blood only) 38.9 % (37-47); Hemoglobin 12.9 g/dL (12.0-16.0); Immature Granulocytes # (auto) 0.02 K/uL (0.00-0.02); Immature Granulocytes % (auto) 0.2 %; Lymphocytes # (auto) 2.56 K/uL (1.2-3.4); Mean Corpuscular Hemoglobin 31.1 pg (25-34); Mean Corpuscular Hgb Conc 33.2 g/dL (32-36); Mean Corpuscular Volume 93.7 fL (80-100); Mean Platelet Volume 10.9 fL (7.4-10.4); Monocytes # (auto) 0.63 K/uL (0.11-0.59); Monocytes % (auto) 7.4 %; Neutrophils # (auto) 5.04 K/uL (1.4-6.5); Platelet Count 213 K/uL (130-400); RDW Coefficient of Variation 13.3 % (11.5-14.5); RDW Standard Deviation 45.5 fL (36.4-46.3); Red Blood Count 4.15 M/uL (4.2-5.4); White Blood Count 8.54 K/uL (4.8-10.8)
[2020-02-06 14:17] LABS: BUN Creatinine Ratio 21.5 (10-20); Calcium 8.7 mg/dl (8.5-10.1); Creatinine Clr Calc Pharmacy 76.6 ml/min; Est GFR (African American) 67.8; Est GFR (Non-African American) 58.5; Potassium 4.1 mmol/L (3.5-5.1)
[2020-02-06 15:14] LABS: Appearance Urine Clear (Clear); Bilirubin Urine Negative (Negative); Blood Urine Negative (Negative); Color Urine Yellow; Glucose Urine UA Negative (Negative); Ketones Urine Negative (Negative); Leukocyte Esterase Urine Negative (Negative); Nitrite Urine Negative (Negative); Protein Urine Negative (Negative); Specific Gravity Urine 1.021 (1.000-1.030); Urobilinogen Urine Negative (Negative)
--- NOTE | 2020-02-08 08:39 | Electrocardiogram Report ---
Test Reason : Blood Pressure : / mmHG Vent. Rate : 080 BPM Atrial Rate : 080 BPM P-R Int : 162 ms QRS Dur : 154 ms QT Int : 464 ms P-R-T Axes : 060 -39 014 degrees QTc Int : 535 ms Normal sinus rhythm Left axis deviation Right bundle branch block Abnormal ECG No previous ECGs available Confirmed by Omari Flowers ([id number]) on 02/08/2020 8:39:12 AM Referred By: Fermin Richardson Confirmed By:Omari Flowers
[2020-02-21] MEDS ORDERED: MIDAZOLAM HCL 1 MG/ML 2ML VIAL ONE (06:39)
[2020-02-21] MEDS ORDERED: LIDOCAINE HCL 2% 2 ML VIAL/AMP(20MG/ML) INFIL ONE (06:39)
[2020-02-21] MEDS ORDERED: ONDANSETRON INJ 2 MG/ML 2 ML VIAL ONE (06:39)
[2020-02-21] MEDS ORDERED: PROPOFOL IV EMULSION 10 MG/ML 20 ML VIAL IV ONE (06:39)
[2020-02-21] MEDS ORDERED: DEXAMETHASONE SOD INJ 4 MG/ML VIAL ONE (06:39)
[2020-02-21] MEDS ORDERED: fentaNYL citrate 100 MCG/2 ML VIAL ONE (06:39)
[2020-02-21] MEDS ORDERED: HYDROmorphone INJ 2 MG/ML SYR/VIAL ONE (06:39)
[2020-02-21] MEDS ORDERED: LARYING-O-JET KIT (LTA) ONE (06:53)
[2020-02-21] MEDS ORDERED: BACITRACIN INJ 50,000 UNIT VIAL ONE (07:13)
[2020-02-21] MEDS ORDERED: BUPIVACAINE/EPINEPHRINE 0.25% 1:200,000 30 ML VIAL ONE (07:13)
--- NOTE | 2020-02-21 07:38 | History & Physical Bridge Note ---
Date of Service February 21, 2020 History & Physical Bridge Note I have examined the patient, reviewed the History & Physical and in the interval since the performance of the History & Physical I have noted the following changes of clinical significance: no changes noted
--- NOTE | 2020-02-21 07:39 | History & Physical Report ---
Date of Service February 21, 2020 Assessment & Plan (1) Spinal stenosis, lumbar region with neurogenic claudication: Admission and Anticipated Discharge Date Admission Date: L3-L4 decompression fusion, L4-S1 hardware removal History of Present Illness Chief Complaint: Back and leg pain Primary Care Provider: Kayleigh Lugo DO This is a 49-year-old female who presents with chronic persistent back and leg pain. After failing course of nonoperative care she is here for surgical intervention. Allergies Allergy/AdvReac Type Severity Reaction Status Date / Time gabapentin Allergy Mild itchy rash Verified 02/21/20 06:50 latex Allergy Mild itchy rash Verified 02/21/20 06:50 Home Medications Home Medications Medication Instructions Recorded Confirmed Type cyclobenzaprine 10 mg PO HS 04/20/19 02/21/20 History diclofenac sodium 75 mg PO BID 04/20/19 02/21/20 History fluoxetine [Sarafem] 10 mg PO QAM 04/20/19 02/21/20 History furosemide [Lasix] 20 mg PO QAM 04/20/19 02/21/20 History lisinopril 10 mg PO QAM 04/20/19 02/21/20 History multivitamin 1 tab PO QAM 04/20/19 02/21/20 History tramadol 50 mg PO Q6H PRN #30 tab 05/09/19 02/21/20 Rx certolizumab pegol [Cimzia] 400 mg SUBCUT MONTHLY 01/31/20 02/21/20 History minocycline 100 mg PO BID 01/31/20 02/21/20 History ondansetron HCl [Zofran] 4 mg PO Q6H PRN 01/31/20 02/21/20 History pantoprazole [Protonix] 40 mg PO QAM 01/31/20 02/21/20 History pregabalin [Lyrica] 75 mg PO BID 01/31/20 02/21/20 History Past Med/Surg History Medical History Acne on Minocycline Ankylosing spondylitis Chronic back pain Fatty liver disease, nonalcoholic GERD (gastroesophageal reflux disease) controlled GI bleed 2018 s/p EGD/colonoscopy with biopsy Hypertension Interstitial cystitis stable Migraine hx Morbid obesity Osteoarthritis PSA (psoriatic arthritis) Rheumatoid arthritis Surgical History History of breast biopsy History of cholecystectomy History of colonoscopy History of cystoscopy History of dilatation and curettage History of esophagogastroduodenoscopy (EGD) History of lumbar fusion L4-S1 decompression/fusion: 05/08/19: Grade view 1, Webb#2, ett 7.5 at [facility] Hx of lumpectomy x2 on right (benign) S/P cervical spinal fusion ACDF x2 levels (unsure of which levels); limited ROM to right side S/P endometrial ablation S/P lymph node biopsy right axillary (benign) Family History Aunt FHx: breast cancer, Onset Age: 70 Sister FHx: breast cancer, Onset Age: 36 Family history of diabetes mellitus Father Family history of diabetes mellitus FHx: coronary artery disease Mother Family history of diabetes mellitus Slow to wake up after anesthesia Grandmother (Paternal) Family history of diabetes mellitus Grandfather (Paternal) Family history of diabetes mellitus Brother Family history of diabetes mellitus Social History Smoking Status: Never smoker Second Hand Exposure: No; Do You Dip or Chew Tobacco: No; Hx Alcohol Use: No Hx Substance Use: No Preferred Language: [place] Islander Communication Ability: Effective Clay Puddler Required: No Beliefs That Will Affect Care: None Current Living Situation: Significant Other Feels Safe at Home: Yes Safety Concerns: Feels Safe At This Time Physical Exam Physical Exam: Patient is alert and oriented neurologically intact. Heart regular rate and rhythm. Lungs clear to auscultation. Results & Data ([facility]) Vital Signs (Past 12 Hours) Vital Signs Temp Pulse Resp BP Pulse Ox 02/21/20 06:58 36.9 C 97 H 16 151/102 H 99
[2020-02-21] MEDS ORDERED: PHENYLEPHRINE HCL 10 MG/ML VIAL ONE (09:27)
[2020-02-21] MEDS ORDERED: ROCURONIUM BROMIDE 10 MG/ML 5 ML VIAL IV ONE ×2 (09:27→09:28)
[2020-02-21] MEDS ORDERED: FLOSEAL HEMOSTATIC MATRIX 10ML TOP ONE (09:39)
[2020-02-21] MEDS ORDERED: GLYCOPYRROLATE 0.2 MG/ML VIAL ONE (09:42)
[2020-02-21] MEDS ORDERED: NEOSTIGMINE METHYLSULFATE 1 MG/ML 10ML VIAL ONE (09:42)
--- NOTE | 2020-02-21 09:49 | Operative Report ---
Post Operative Report Pre & Post Diagnosis Operation Date: 02/21/20 07:45 Pre-Op Diagnosis: Spinal Stenosis, Lumbar Region with Neurogenic Claudication Morbid obesity Post-Op Diagnosis: Spinal Stenosis, Lumbar Region with Neurogenic Claudication Morbid obesity I identified the patient and participated in the time-out.: Yes Procedure Operation Date: 02/21/20 07:45 Actual Procedures p L3-L4 Decompression and Fusion with Insertion of Interbody, Application of OsteoAmp and Bone Morphogenetic Protein, L4-S1 Hardware Removal, Spinal Cord Monitoring(Not Applicable) - Fermin Richardson DO Surgeon Fermin Richardson DO Competitive Intelligence Manager Trish Alvarado Estimated Blood Loss 400 Findings See Below Patient is 5 foot 3 inches tall weighing over 120 kg with a BMI in excess of 46. Patient's body habitus did add significant technical difficulty requiring her deepest retractors and longus instruments in order to perform her procedure. This added at least 50% increase to the operative time as well as adding increased postoperative care. Specimens None Indications This is a 49-year-old female known to me the presents with above-mentioned diagnosis after failing extensive course of nonoperative care is here for the above-mentioned procedure. Description of Procedure Patient was met with identified informed consent obtained. Patient was then taken to the operative suite underwent an patient placed in a prone position the Tobi table on top of the Gavin frame. All bony prominences well-padded eyes inspected to ensure no external pressure placed upon them. This point the lumbar spine was prepped and draped in a sterile fashion. Sharp dissection with assistance of Bovie cautery was performed down to and exposing the lamina and transverse processes of L3 and instrumentation at L4-L5 and S1 levels bilaterally. Then proceeded move the hardware bilaterally explore the fusion mass noting it to be maturing. Then performed a complete laminectomy of L3 including bilateral medial facetectomies and foraminotomies addressing severe spinal stenosis. Pedicle screws were then placed in L3-L4-L5 and S1 levels bilaterally with assistance of fluoroscopy and appropriate size nathan placed. By way the transforaminal approach on the right a complete discectomy of L3-4 was performed endplates curetted to subcortical bleeding bone and a 10 x 22 mm peek cage filled with osteo-amp bone graft tapped in position. Rods were then locked in final position bilaterally. The transverse processes of L3 and L4 were burred to subcortical bleeding bone. Infuse collagen sponge master graft local autograft placed in the posterior gutters. 15 round JAH drain inserted. The incision was then closed with 1 Vicryl in the fascia 2-0 Vicryl subcutaneously and 4 Monocryl for final skin closure. Steri-Strips dressings placed. Patient waken taken PACU stable addition. Please note spinal cord monitoring was utilized at the procedure no changes noted. Lastly Trish Alvarado was present at the entire procedure about the patient positioning complex portions of the surgery and final skin closure. I attest to the content of the Intraoperative Record and any orders documented therein. Any exceptions are noted below.
--- NOTE | 2020-02-21 10:22 | Fluoroscopy Report ---
LUMBAR SPINE, INTRAOPERATIVE FLUOROSCOPY HISTORY: L3-S1 decompression and fusion. FLUOROSCOPY TIME: 11 seconds. FINDINGS: Intraoperative fluoroscopy was provided for the lumbar spine. 2 fluoroscopic spot images we re obtained. Posterior decompression fusion from L3 through S1 with pedicle screws and rods. The hard allen appears intact. IMPRESSION: Fluoroscopy provided for a L3-S1 posterior decompression and fusion. ACT 112: Negative or not required by law. Electronically signed by: Louis Friedman M.D. 02/21/2020 10:21 AM
[2020-02-21] MEDS ORDERED: fentaNYL citrate 100 MCG/2 ML VIAL IV PRN (10:32)
[2020-02-21] MEDS ORDERED: HYDROmorphone INJ 1 MG/ML SYRINGE IV PRN ×2 (10:32→11:06)
[2020-02-21] MEDS ORDERED: ONDANSETRON INJ 2 MG/ML 2 ML VIAL IV PRN ×2 (10:32→11:06)
[2020-02-21] MEDS ORDERED: ePHEDrine sulfate 50 MG/ML AMP IV PRN (10:32)
[2020-02-21] MEDS ORDERED: ATROPINE SULFATE 0.1 MG/ML 10ML SYR IV PRN (10:32)
[2020-02-21] MEDS ORDERED: METOPROLOL TARTRATE 1 MG/ML VIAL IV STA (10:36)
[2020-02-21] MEDS ORDERED: METOPROLOL TARTRATE 1 MG/ML VIAL IV ONE (10:37)
--- NOTE | 2020-02-21 10:52 | Anesthesiology Progress Note ---
Date of Service February 21, 2020 Anesthesia Post Procedure Vital Signs Vital Signs: Temp Pulse Pulse Pulse Resp BP BP 02/21/20 10:45 90 86 18 146/76 H 133/73 02/21/20 10:39 105 H 144/72 H 02/21/20 10:35 103 H 15 144/72 H 02/21/20 10:25 101 H 18 143/85 H 02/21/20 10:15 99 H 19 116/55 L 02/21/20 10:06 37.2 C 97 H 14 147/85 H 02/21/20 06:58 36.9 C 97 H 16 151/102 H Pulse Ox 02/21/20 10:45 98 02/21/20 10:39 02/21/20 10:35 99 02/21/20 10:25 99 02/21/20 10:15 96 02/21/20 10:06 100 02/21/20 06:58 99 Pain Intensity Bilateral Lower Back: Pain Intensity: 0 Transfer of Care Handoff Completed per policy Notes Mental Status: alert / awake / arousable and participated in evaluation Patient Amnestic to Procedure: Yes Nausea / Vomiting: adequately controlled Pain: adequately controlled Airway Patency, RR, SpO2: stable & adequate BP & HR: stable & adequate Hydration State: stable & adequate Anesthetic Complications: no major complications apparent and Pt Satisfied with anesthetic care
[2020-02-21] MEDS ORDERED: MAGNESIUM HYDROXIDE SUSP 30 ML UDC PO PRN (11:06)
[2020-02-21] MEDS ORDERED: DO NOT ADMINISTER FLU VACCINE PRN (11:06)
[2020-02-21] MEDS ORDERED: TRAMADOL HCL 50 MG TABLET PO PRN (11:06)
[2020-02-21] MEDS ORDERED: DO NOT ADMINISTER PNEUMOCOCCAL VACCINE PRN (11:06)
[2020-02-21] MEDS ORDERED: ALUMINUM/MAGNESIUM SUSP 30 ML UDC PO PRN (11:06)
[2020-02-21] MEDS ORDERED: PROMETHAZINE HCL 12.5 MG in SODIUM CHLORIDE 0.9% 50 ML IV PRN (11:06)
[2020-02-21] MEDS ORDERED: LORazepam 0.5 MG/1 ML VIAL IV PRN (11:06)
[2020-02-21] MEDS ORDERED: METOCLOPRAMIDE HCL INJ 5 MG/ML 2 ML VIAL IV PRN (11:06)
[2020-02-21] MEDS ORDERED: LORazepam 0.5 MG TAB PO PRN (11:06)
[2020-02-21] MEDS ORDERED: bisacodyL 10 MG SUPP PR PRN (11:06)
[2020-02-21] MEDS ORDERED: HYDROmorphone INJ 0.5 MG/0.5 ML SYR IV PRN (11:06)
[2020-02-21] MEDS ORDERED: FAMOTIDINE 20 MG TAB PO PRN (11:06)
[2020-02-21] MEDS ORDERED: ACETAMINOPHEN 1,000 MG/100 ML VIAL IV PRN (11:06)
[2020-02-21] MEDS ORDERED: NALOXONE HCL 0.4 MG/1 ML VIAL/CARP IV PRN (11:06)
[2020-02-21] MEDS ORDERED: SOD PHOSPHATE/SOD BIPHOSPHATE ENEMA 132 ML BTL PR PRN (11:06)
[2020-02-21] MEDS ORDERED: ACETAMINOPHEN 500 MG TAB PO PRN (11:06)
[2020-02-21] MEDS ORDERED: ONDANSETRON 4 MG OD TAB PO PRN (11:06)
[2020-02-21] MEDS: LACTATED RINGER'S 1,000 ML IV SCH ×2 (11:13→17:51)
[2020-02-21] MEDS: KETOROLAC 30 MG/ML VIAL IV SCH ×3 (14:10→23:18)
[2020-02-21] MEDS: Scopolamine CHECK PATCH PLACEMENT SCH ×2 (15:25→23:19)
[2020-02-21] MEDS: CEFAZOLIN 2000MG 2,000 MG/15 ML SYR IV SCH ×2 (16:53→23:18)
[2020-02-21] MEDS: PREGABALIN 75 MG CAP PO SCH (20:29)
[2020-02-21] MEDS: OXYCODONE HCL IR 5 MG TAB (IMMEDIATE RELEASE) PO PRN (20:29)
[2020-02-21] MEDS: DOCUSATE SODIUM/SENNA 50/8.6MG TAB PO SCH (20:29)
[2020-02-22] MEDS: LACTATED RINGER'S 1,000 ML IV SCH (01:59)
[2020-02-22] MEDS: KETOROLAC 30 MG/ML VIAL IV SCH (05:48)
[2020-02-22] MEDS: POLYETHYLENE (MIRALAX) 17 GM PACK PO SCH ×3 (05:49→18:16)
[2020-02-22 06:09] LABS: Hematocrit (blood only) 31.3 % (37-47); Hemoglobin 10.4 g/dL (12.0-16.0); Immature Granulocytes # (auto) 0.04 K/uL (0.00-0.02); Immature Granulocytes % (auto) 0.3 %; Lymphocytes # (auto) 1.82 K/uL (1.2-3.4); Lymphocytes % (auto) 11.5 %; Mean Corpuscular Hemoglobin 30.7 pg (25-34); Mean Corpuscular Hgb Conc 33.2 g/dL (32-36); Mean Corpuscular Volume 92.3 fL (80-100); Mean Platelet Volume 10.3 fL (7.4-10.4); Monocytes # (auto) 1.08 K/uL (0.11-0.59); Monocytes % (auto) 6.8 %; Neutrophils # (auto) 12.94 K/uL (1.4-6.5); Neutrophils % (auto) 81.4 %; Platelet Count 208 K/uL (130-400); RDW Coefficient of Variation 13.3 % (11.5-14.5); RDW Standard Deviation 45.1 fL (36.4-46.3); Red Blood Count 3.39 M/uL (4.2-5.4); White Blood Count 15.88 K/uL (4.8-10.8)
[2020-02-22 06:41] LABS: BUN Creatinine Ratio 22.6 (10-20); Calcium 8.7 mg/dl (8.5-10.1); Creatinine Clr Calc Pharmacy 92.8 ml/min; Est GFR (African American) 85.3; Est GFR (Non-African American) 73.6; Potassium 4.4 mmol/L (3.5-5.1)
[2020-02-22] MEDS: Scopolamine CHECK PATCH PLACEMENT SCH ×3 (08:20→21:28)
[2020-02-22] MEDS: OXYCODONE HCL IR 5 MG TAB (IMMEDIATE RELEASE) PO PRN ×3 (08:21→18:10)
[2020-02-22] MEDS: MULTIVITAMIN TAB PO SCH (08:21)
[2020-02-22] MEDS: FLUOXETINE HCL 10 MG CAP PO SCH (08:22)
[2020-02-22] MEDS: PANTOprazole 40 MG TAB PO SCH (08:22)
[2020-02-22] MEDS: lisinopriL 10 MG TAB PO SCH (08:25)
[2020-02-22] MEDS: PREGABALIN 75 MG CAP PO SCH ×2 (08:25→21:28)
[2020-02-22] MEDS: FUROSEMIDE 20 MG TAB PO SCH (08:25)
--- NOTE | 2020-02-22 10:27 | Orthopedic Progress Note ---
Date of Service February 22, 2020 Assessment & Plan (1) Spinal stenosis, lumbar region with neurogenic claudication: Admission and Anticipated Discharge Date Admission Date: February 21, 2020 Subjective Back pain controlled leg symptoms markedly improved. Physical Exam Physical Exam: Patient is in the chair at the bedside. Is good strength testing. Appears comfortable. Results & Data ([facility]) Vital Signs (Past 12 Hours) Vital Signs Temp Pulse Resp BP Pulse Ox 02/22/20 08:20 128/87 02/22/20 06:58 36.7 C 106 H 16 96/61 L 99 02/22/20 03:47 36.8 C 97 H 16 102/66 95 02/21/20 23:35 36.8 C 94 H 18 112/68 97
[2020-02-22] MEDS: DOCUSATE SODIUM/SENNA 50/8.6MG TAB PO SCH (21:28)
[2020-02-23] MEDS: OXYCODONE HCL IR 5 MG TAB (IMMEDIATE RELEASE) PO PRN ×2 (02:35→07:41)
[2020-02-23] MEDS: Scopolamine CHECK PATCH PLACEMENT SCH (07:30)
[2020-02-23] MEDS: FUROSEMIDE 20 MG TAB PO SCH (08:46)
[2020-02-23] MEDS: PREGABALIN 75 MG CAP PO SCH (08:46)
[2020-02-23] MEDS: PANTOprazole 40 MG TAB PO SCH (08:47)
[2020-02-23] MEDS: lisinopriL 10 MG TAB PO SCH (08:47)
[2020-02-23] MEDS: MULTIVITAMIN TAB PO SCH (08:47)
[2020-02-23] MEDS: FLUOXETINE HCL 10 MG CAP PO SCH (08:47)
[2020-02-23] MEDS ORDERED: DEXAMETHASONE SOD PHOSPHATE 8 MG in SYRINGE 0 ML IV SCH (09:00)
--- NOTE | 2020-02-23 10:18 | Discharge Summary ---
Date of Service February 23, 2020 Admission HPI Per Admitting Provider This is a 49-year-old female who presents with chronic persistent back and leg pain. After failing course of nonoperative care she is here for surgical intervention. Principal Diagnosis Lumbar spinal stenosis with neurogenic claudication Discharge Data Allergies Allergy/AdvReac Type Severity Reaction Status Date / Time gabapentin Allergy Mild itchy rash Verified 02/21/20 06:50 latex Allergy Mild itchy rash Verified 02/21/20 06:50 Consultations 02/21/20 11:06 Consult Case Management - Discharge Planning Routine Procedures Performed Operation Date: 02/21/20 07:45 Actual Procedures p L3-L4 Decompression and Fusion with Insertion of Interbody, Application of OsteoAmp and Bone Morphogenetic Protein, L4-S1 Hardware Removal, Spinal Cord Monitoring(Not Applicable) - Fermin Richardson DO Ordered Studies 02/21/20 07:45 FL fluoroscopy <1hr Routine FL lumbar spine 2-3V Routine Hospital Course (1) Spinal stenosis, lumbar region with neurogenic claudication: Patient underwent lumbar decompression fusion tolerated so was taken to orthopedic for postoperative. Postop day 1 she was up and ambulating leg symptoms improved. She rested postop day 2. Pain well controlled. Excellent strength testing. Subsequently discharged home. Discharge orders and instructions from the chart for further review. Total Time Total Time Spent Total Time Spent (In Minutes): 20 minutes Discharge Plan Discharge Items Patient Disposition: Home - Self-Care Reason For Visit: Spinal Stenosis, Lumbar Region with Neurogenic Cla Discharge Diagnosis: Lumbar spinal stenosis with neurogenic claudication Activity: As commented below Non-emergency contact: Primary Care Provider Call non-emergency contact if: you have any medication questions Follow-up/Referrals: Kayleigh Lugo DO [Primary Care Provider] - Diet: Regular Addtl Attending Provider Instructions: ACTIVITY RECOMMENDATIONS: SELF CARE INSTRUCTIONS AFTER THORACIC/LUMBAR FUSIONS 1. You may walk to your tolerance. It is good exercise for your legs and back. Expect some back and intermittent leg aches and pains. 2. You may perform "counter-top" level activities (make a sandwich, gladys with a project, etc.). 3. No bending or lifting of more than 10 pounds or back twisting of any nature (roll like a log when turning in bed). 4. You may ride in a car for 20-30 minutes at a time. No driving until after your first visit with your doctor. 5. Frequent changes of position and restricting sitting to 30 minutes at a time will help limit the amount of back spasms and stiffness you may experience. 6. You may discontinue the use of ambulatory aids (cane, crutches, etc.) once your strength and confidence allow. 7. You may supervisor silvering department the shower and let water strike your incision when you arrive home at least once daily. Do not take a tub bath, sit in a hot tub or go into a swimming pool until after your first recheck in the office. SPECIAL CARE INSTRUCTIONS: VERY IMPORTANT TO READ AND REVIEW A. Your surgical incision has been closed with a cosmetic suture under the skin that will dissolve in about 6 weeks. In 14 days, you can use a pair of clean scissors and cut the suture that is left outside of the skin at t he ends of your incision. 1. The small skin tapes can be removed 7 days after surgery if they have not fallen off by that point. 2. You may keep the wound open to air as much as possible to promote healing after post-op day number 5 unless told otherwise by your doctor. 3. If you think the wound looks like it is becoming infected (redness or worsening drainage) and/or you are experiencing fever, chill or worsening back pain and muscle spasms, contact the office so that we may evaluate you as soon as possible. B. Complications are uncommon, but please contact us if you have any signs or symptoms of: 1. wound infection (fever higher than 102.5 degrees F, redness, separation of wound, drainage, or increasing pain from the incision) 2. blood clots in legs (pain, swelling, redness and warmth in legs) 3. urinary tract infection (fever higher than 102.5 degrees F, burning upon urination or increased frequency of urination) 4. nerve problems (inability to walk on your toes or heels, numbness, loss of bowel or bladder control) 5. any other symptoms that concern you C. Please call the office at if you have any concerns or questions about your operation or recovery. D. No smoking! Smoking drastically decreases the chance of a solid fusion. E. Do not take any anti-inflammatory medications (Indocin, Advil, Motrin, Aspirin, Naprosyn, etc.) as these may inhibit the chance of a solid fusion. Tylenol is okay to take for pain. MANAGING PAIN AFTER SPINAL SURGERY 1. Narcotic medication is intended for short-term use and will be provided for surgical pain. Surgical pain usually lasts for a period of 4-6 weeks. Narcotic medication includes Percocet, Vicodin, Darvocet, Tylenol #3 or Lortab. 2. Longer-term pain is more appropriately treated with non-narcotic medication such as Tylenol ES. 3. Muscle spasm is not appropriately treated with narcotics. Muscle relaxers such as Soma, Flexeril or Skelaxin can be used along with Tylenol ES. 4. Remember that we all live with some "aches and pains". This is not unusual or uncommon after an injury or as we get older. a. Back pain is expected and may include muscle spasms for 4 to 6 weeks after surgery. The pain should gradually improve. If the pain worsens for no apparent reason, please contact the office. b. Intermittent leg pain may also be experienced and should not be concerned about unless it worsens for no apparent reason. If so, please contact the office. 5. We will provide appropriate medication within the normal guidelines of their prescribed use. We will also be very cautious and aware of potential abuse and extended duration of patients' medication needs. a. Pain medications are for your comfort and to assist with sleep and rest so that the tissue can heal. They are not provided in order to return to normal activity and should not be used through the day. To do so or worsening pain at night can result from ongoing tissue damage and development of tolerance to the prescribed medicine. 6. Please allow 2-3 days to process refills. Prescriptions will not be mailed but must be picked up at the office. FOLLOW UP VISIT: Keep your scheduled follow-up appointment. Any questions, please call the office at . Pending Studies at Discharge: No Stand-Alone Forms: My [employer], Smoking Cessation Medications and DC Order Prescriptions: New tramadol 50 mg tablet 50 mg PO Q6H PRN (Reason: pain, moderate) Qty: 20 RF: 0 oxycodone 5 mg tablet 5 mg PO Q6H PRN (Reason: pain, severe) Qty: 20 RF: 0 Continued multivitamin Tablet 1 tab PO QAM RF: 0 cyclobenzaprine 10 mg Tablet 10 mg PO HS RF: 0 fluoxetine [Sarafem] 10 mg Tablet 10 mg PO QAM RF: 0 lisinopril 10 mg Tablet 10 mg PO QAM RF: 0 furosemide [Lasix] 20 mg Tablet 20 mg PO QAM RF: 0 tramadol 50 mg tablet 50 mg PO Q6H PRN (Reason: pain, moderate) Qty: 30 RF: 0 pantoprazole [Protonix] 40 mg Tablet,Delayed Release (Dr/Ec) 40 mg PO QAM RF: 0 pregabalin [Lyrica] 75 mg Capsule 75 mg PO BID RF: 0 Cimzia 400 mg/2 mL (200 mg/mL x 2) Syringe Kit 400 mg SUBCUT MONTHLY RF: 0 minocycline 100 mg Capsule 100 mg PO BID RF: 0 ondansetron HCl [Zofran] 4 mg Tablet 4 mg PO Q6H PRN (Reason: Nausea) RF: 0 Discontinued diclofenac sodium 75 mg Tablet,Delayed Release (Dr/Ec) 75 mg PO BID RF: 0 Discharge Orders: Discharge Order (Routine); Ordered 02/23/20 Ordered By: Fermin Richardson Admission Data Admit Date/Time: 02/21/20 10:07 Attending Provider: Fermin Richardson Admit Provider: Fermin Richardson Primary Care Provider: Kayleigh Luog
== END 2020-02-23 12:56 | disposition home or self-care (01) | DRG 454 ==
LOC: ASU 06:09 → 3E 10:07

== ENCOUNTER 2025-04-09 07:40 | Observation (INO) ==
--- NOTE | 2025-03-08 14:31 | PAT Medication Instructions ---
Medication Instructions Date of Service March 08, 2025 Home Medications cyclobenzaprine 10 mg tablet 10 mg PO HS PRN Spasms furosemide 20 mg tablet (Lasix) 40 mg PO QAM lisinopril 10 mg tablet 10 mg PO QAM multivitamin 1 tab PO QAM ondansetron HCl 4 mg tablet (Zofran) 4 mg PO Q6H PRN Nausea pantoprazole 40 mg tablet,delayed release (Protonix) 40 mg PO QAM atorvastatin 10 mg tablet 10 mg PO HS diclofenac sodium 75 mg tablet,delayed release 75 mg PO BID fluoxetine 20 mg capsule 20 mg PO QAM sennosides 8.6 mg-docusate sodium 50 mg tablet (Senna with Docusate Sodium) 1 tab-cap PO QAM metoprolol succinate 25 mg tablet,extended release 24 hr 25 mg PO QAM pioglitazone 15 mg tablet (Actos) 15 mg PO QAM ropinirole 0.5 mg tablet 0.5 mg PO HS sulfasalazine 500 mg tablet 1,500 mg PO BID ASK your surgeon for instructions diclofenac sodium 75 mg tablet,delayed release 75 mg PO BID ASK your prescriber and surgeon sulfasalazine 500 mg tablet 1,500 mg PO BID DO NOT take the morning of surgery furosemide 20 mg tablet (Lasix) 40 mg PO QAM lisinopril 10 mg tablet 10 mg PO QAM multivitamin 1 tab PO QAM sennosides 8.6 mg-docusate sodium 50 mg tablet (Senna with Docusate Sodium) 1 tab-cap PO QAM pioglitazone 15 mg tablet (Actos) 15 mg PO QAM Take morning of surgery With a small sip of water, OTHERWISE NOTHING TO EAT OR DRINK AFTER MIDNIGHT: ondansetron HCl 4 mg tablet (Zofran) 4 mg PO Q6H PRN Nausea (if needed) pantoprazole 40 mg tablet,delayed release (Protonix) 40 mg PO QAM fluoxetine 20 mg capsule 20 mg PO QAM metoprolol succinate 25 mg tablet,extended release 24 hr 25 mg PO QAM Take evening before surgery cyclobenzaprine 10 mg tablet 10 mg PO HS PRN Spasms (if needed) ondansetron HCl 4 mg tablet (Zofran) 4 mg PO Q6H PRN Nausea (if needed) atorvastatin 10 mg tablet 10 mg PO HS ropinirole 0.5 mg tablet 0.5 mg PO HS Other Notes If you have any questions please call us at [phone] or [phone] or [phone] or [phone]
--- NOTE | 2025-03-14 11:01 | Anesthesiology Consultation ---
Date of Service March 14, 2025 Assessment & Plan (1) Encounter for pre-operative examination: - Check BSG, test DOS - Infectious disease screening: Per assessment on 03/14/25- No known recent infectious disease contacts or current infectious disease symptoms. - Hx PONV: Given preventative medication/patch with previous surgery with significant improvement per patient. Scope patch ordered for DOS. - Acceptable risk for surgery pending surgeon-ordered PCP (Dr. Kayleigh Lugo, appt 03/27) and cardiology (Dr. Cabrales, appt 03/27) preop evaluations. Chart Review Chart Review: Patient seen in Pre Admission Testing Teaching & Discussion Pre-Anesthesia Teaching/Discussion Notes: Instructed NPO after midnight before surgery,except medications with 15 cc of water. Medication instructions provided according to the PAT guidelines. History Surgery Operation Date: 04/09/25 07:45 Proposed Procedures p L1-L2 Decompression, L2-S1 Exploration, T12-L2 Fusion, with Spinal Cord Monitoring - Fermin Richardson, Height/Weight Height: 5 ft 2 in Weight: 127.4 kg Allergies Allergy/AdvReac Type Severity Reaction Status Date / Time gabapentin Allergy Mild Itchy rash Verified 03/08/25 14:39 latex Allergy Mild Itchy rash Verified 03/08/25 14:39 Medications Home Medications Medication Instructions Recorded Confirmed Last Taken cyclobenzaprine 10 mg tablet 10 mg PO HS PRN Spasms 04/20/19 03/08/25 02/20/20 21:00 furosemide 20 mg tablet (Lasix) 40 mg PO QAM 04/20/19 03/08/25 02/19/20 08:00 lisinopril 10 mg tablet 10 mg PO QAM 04/20/19 03/08/25 02/20/20 08:00 multivitamin 1 tab PO QAM 04/20/19 03/08/25 02/07/20 ondansetron HCl 4 mg tablet 4 mg PO Q6H PRN Nausea 01/31/20 03/08/25 02/07/20 (Zofran) pantoprazole 40 mg tablet,delayed 40 mg PO QAM 01/31/20 03/08/25 02/21/20 04:00 release (Protonix) atorvastatin 10 mg tablet 10 mg PO HS 04/07/21 03/08/25 Unknown diclofenac sodium 75 mg 75 mg PO BID 04/07/21 03/08/25 Unknown tablet,delayed release fluoxetine 20 mg capsule 20 mg PO QAM 04/07/21 03/08/25 Unknown sennosides 8.6 mg-docusate sodium 1 tab-cap PO QAM 04/07/21 03/08/25 Unknown 50 mg tablet (Senna with Docusate Sodium) metoprolol succinate 25 mg 25 mg PO QAM 03/08/25 03/08/25 Unknown tablet,extended release 24 hr pioglitazone 15 mg tablet (Actos) 15 mg PO QAM 03/08/25 03/08/25 Unknown ropinirole 0.5 mg tablet 0.5 mg PO HS 03/08/25 03/08/25 Unknown sulfasalazine 500 mg tablet 1,500 mg PO BID 03/08/25 03/08/25 Unknown phentermine 1 tab PO DAILY 03/14/25 03/14/25 Unknown Past Medical History Medical History (Updated 03/14/25 @ 11:29 by Socorro Patton) Ankylosing spondylitis Follows with rheum Aortic stenosis Echo 09/04/24: Moderate aortic stenosis (MG 21 mmHg, DVI 0.3) Ascending aortic aneurysm Monitoring, "last check 4.3cm" Follows with [facility]/Thoracic Cardiac Surgeon Diabetes mellitus, type 2 NIDDM Fatty liver disease, nonalcoholic Hx of elevated of LFTs PCP monitoring Fibromyalgia GERD (gastroesophageal reflux disease) Controlled Hypertension IBS (irritable bowel syndrome) Combination- diarrhea and constipation Interstitial cystitis "Stable" Migraine Hx Morbid obesity Peripheral neuropathy RLE (from knee to toes), happened after first lumbar surgery PSA (psoriatic arthritis) Follows with rheum Rheumatoid arthritis Follows with rheum Exercise / Class Metabolic Activity III < 4 Walking/Shop/Light housework Past Family History Family History Aunt FHx: breast cancer, Onset Age: 70 Sister FHx: breast cancer, Onset Age: 36 Family history of diabetes mellitus Father Family history of diabetes mellitus FHx: coronary artery disease Mother Family history of diabetes mellitus Slow to wake up after anesthesia Grandmother (Paternal) Family history of diabetes mellitus Grandfather (Paternal) Family history of diabetes mellitus Brother Family history of diabetes mellitus Past Surgical History Surgical History History of breast biopsy benign History of cholecystectomy History of colonoscopy History of cystoscopy History of dilatation and curettage History of esophagogastroduodenoscopy (EGD) History of lumbar fusion x3 (last 2021) History of parotidectomy (2022) Left, benign tumor, [place] History of tooth extraction Hx of lumpectomy x2 on right (benign) Nausea and vomiting after administration of anesthetic agent S/P cervical spinal fusion ACDF x2 levels (unsure of which levels); limited ROM to right side S/P endometrial ablation S/P lymph node biopsy Right axillary (benign) Past Anesthesia History No Hx of Anesthesia Complications Mother: Slow to wake History of PONV History of PONV (Given preventative medication/scope with previous surgery with significant improvement) and Hx of Motion Sickness Social History Smoking Status: Never smoker Do You Dip or Chew Tobacco: No Hx Alcohol Use: No Hx Substance Use: No substance use type: does not use Review of Systems Chronic, mild cough- at baseline (? r/t lisinopril). Patient denies chest pain, shortness of breath, fever, chills, wheezing, palpitations. Physical Exam Vital Signs BP 131/79 P 79 TEMP 97.8 SP02 95%RA RESP 18 Physical Full cervical extension range of motion. Full TMJ range of motion. TMD > 3.5 finger breaths Mallampati Score II Dentition: no upper teeth; has upper plate Lungs: clear throughout to auscultation Cardiac: regular rate and rhythm, II/ systolic murmur Spine: normal Carotid arteries: negative bruit Extremities: trace LE edema Thick neck Lab Results Anesthesia Preop Results Results Anesthesia Widget: WBC 7.84 K/ul (4.8-10.8) 03/14/25 Hgb 12.6 g/dl (12.0-16.0) 03/14/25 Hct 37.6 % (37.0-47.0) 03/14/25 Plt 227 K/uL (130-400) 03/14/25 Na 143 mmol/L (136-145) 03/14/25 K 4.1 mmol/L (3.5-5.1) 03/14/25 Cl 109 mmol/L (98-107) H 03/14/25 CO2 29 mmol/L (21-32) 03/14/25 BUN 16 mg/dl (6-23) 03/14/25 Creat 1.00 mg/dl (0.6-1.2) 03/14/25 Glucose Level 101 mg/dl (70-99(Fasting)) H 03/14/25 PT 10.4 Seconds (9.0-12.0) 03/14/25 PTT 29 Seconds (21-31) 03/14/25 INR 1.0 (0.9-1.1) 03/14/25 HA1c 5.8 % (4.5-5.6) H 03/14/25 Urine Color Yellow 03/14/25 Urine Appearance Clear (Clear) 03/14/25 Urine pH 5.0 (4.5-7.5) 03/14/25 Urine Specific [place] 1.011 (1.000-1.030) 03/14/25 Urine Protein Negative (Negative) 03/14/25 Urine Glucose (UA) Negative (Negative) 03/14/25 Urine Ketones Negative (Negative) 03/14/25 Urine Blood Negative (Negative) 03/14/25 Urine Nitrite Negative (Negative) 03/14/25 Urine Bilirubin Negative (Negative) 03/14/25 Urine Urobilinogen Negative (Negative) 03/14/25 Urine Leukocyte Esterase Negative (Negative) 03/14/25 Blood Type A Positive 03/14/25 Antibody Screen NEGATIVE 03/14/25 Testing Electrocardiogram Date: 07/26/24 SR. 80bpm. LAD. RBBB. Chest X-Ray Date: 03/14/25 IMPRESSION: 1. No active lung lesion noted. 2. Mild cardiomegaly. 3. Unfolding of arch of aorta likely due to senile changes. 4. Thoracic spondylosis. Echocardiogram Date: 09/04/24 EF approximately 60%. Likely bicuspid aortic valve. Moderate aortic stenosis (MG 21 mmHg, DVI 0.3). Ascending aorta 4.2 cm. Grade 1 diastolic dysfunction. Pericardium: Physiologic effusion. Stress Test Date: 11/24/23 Lexiscan stress ECG is nondiagnostic for ischemia. Positive transient ischemic dilatation. "TID can be associated with multivessel CAD, correlate clinically." Cervical Spine X-ray Date: 04/14/21 FINDINGS: No acute fracture identified. Anterior cervical fixation hardware is seen. Vertebral body heights and disc spaces are well maintained. The alignment is anatomic Prevertebral soft tissues are within normal limits. IMPRESSION: No evidence for acute fracture or subluxation.
[~2025-04-09 07:40] MED LIST changes: -ACETAMINOPHEN 500 MG TAB PO SCH; -CEFAZOLIN 2000MG 2,000 MG/15 ML SYR IV SCH; -CeleBREX 200 MG CAP PO SCH; +DEXAMETHASONE SOD INJ 4 MG/ML VIAL ONE; -GABAPENTIN 900 MG DOSE PO SCH; +GLYCOPYRROLATE 0.2 MG/ML VIAL ONE; +LIDOCAINE 2% 2 ML VIAL/AMP(20MG/ML) INFIL ONE; -LR 15ML/HR IV SCH; +MIDAZOLAM HCL 1 MG/ML 2ML VIAL ONE; +ONDANSETRON INJ 2 MG/ML 2 ML VIAL ONE; +PROPOFOL IV EMULSION 10 MG/ML 20 ML VIAL IV ONE; +ROCURONIUM BROMIDE 10 MG/ML 5 ML VIAL IV ONE; +SUGAMMADEX SODIUM 200 MG/2 ML VIAL IV ONE
[2025-04-09] MEDS: LR 15ML/HR IV SCH (08:14)
[2025-04-09] MEDS: CeleBREX 200 MG CAP PO SCH (08:15)
[2025-04-09] MEDS: ACETAMINOPHEN 500 MG TAB PO SCH (08:15)
[2025-04-09] MEDS ORDERED: ATROPINE SULFATE 0.1 MG/ML 10ML SYR IV PRN (08:42)
[2025-04-09] MEDS ORDERED: ONDANSETRON INJ 2 MG/ML 2 ML VIAL IV PRN ×2 (08:42→14:51)
[2025-04-09] MEDS ORDERED: PROMETHAZINE HCL 6.25 MG in SODIUM CHLORIDE 0.9% 50 ML IV PRN (08:42)
[2025-04-09] MEDS: SCOPOLAMINE 1 MG/72 HR TDSY PATCH TD ONE (08:55)
--- NOTE | 2025-04-09 09:02 | History & Physical Bridge Note ---
Date of Service April 09, 2025 History & Physical Bridge Note I have examined the patient, reviewed the History & Physical and in the interval since the performance of the History & Physical I have noted the following changes of clinical significance: no changes noted
--- NOTE | 2025-04-09 09:04 | History & Physical Report ---
Date of Service April 09, 2025 Assessment & Plan (1) Other spondylosis with radiculopathy, lumbar region: Plan: L1-L2 decompression, exploration L2-S1, fusion T12 L2 History of Present Illness Chief Complaint: Back and leg pain Primary Care Provider: Kayleigh Lugo DO This is a 54-year-old female who presents with chronic persistent back and leg pain after failing course of nonoperative care is here for surgical invention. Allergies Allergy/AdvReac Type Severity Reaction Status Date / Time gabapentin Allergy Mild Itchy rash Verified 04/09/25 07:53 latex Allergy Mild Itchy rash Verified 04/09/25 07:53 meloxicam [From [email or web address]] Allergy Mild Itching Verified 04/09/25 07:53 Home Medications Medication Instructions Recorded Confirmed Type cyclobenzaprine 10 mg tablet 10 mg PO HS PRN Spasms 04/20/19 03/08/25 History furosemide 20 mg tablet (Lasix) 40 mg PO QAM 04/20/19 03/08/25 History lisinopril 10 mg tablet 10 mg PO QAM 04/20/19 03/08/25 History multivitamin 1 tab PO QAM 04/20/19 03/08/25 History ondansetron HCl 4 mg tablet 4 mg PO Q6H PRN Nausea 01/31/20 03/08/25 History (Zofran) pantoprazole 40 mg tablet,delayed 40 mg PO QAM 01/31/20 03/08/25 History release (Protonix) atorvastatin 10 mg tablet 10 mg PO HS 04/07/21 03/08/25 History diclofenac sodium 75 mg 75 mg PO BID 04/07/21 03/08/25 History tablet,delayed release fluoxetine 20 mg capsule 20 mg PO QAM 04/07/21 03/08/25 History sennosides 8.6 mg-docusate sodium 1 tab-cap PO QAM 04/07/21 03/08/25 History 50 mg tablet (Senna with Docusate Sodium) metoprolol succinate 25 mg 25 mg PO QAM 03/08/25 03/08/25 History tablet,extended release 24 hr pioglitazone 15 mg tablet (Actos) 15 mg PO QAM 03/08/25 03/08/25 History ropinirole 0.5 mg tablet 0.5 mg PO HS 03/08/25 03/08/25 History sulfasalazine 500 mg tablet 1,500 mg PO BID 03/08/25 03/08/25 History Past Med/Surg History Problem List (Updated 04/09/25 @ 09:03 by Fermin Richardson DO) Other spondylosis with radiculopathy, lumbar region Spinal stenosis, lumbar region with neurogenic claudication Encounter for pre-operative examination Medical History (Updated 04/09/25 @ 09:03 by Fermin Richardson DO) Aortic stenosis Echo 09/04/24: Moderate aortic stenosis (MG 21 mmHg, DVI 0.3) Ascending aortic aneurysm Monitoring, "last check 4.3cm" Follows with [facility]/Thoracic Cardiac Surgeon Peripheral neuropathy RLE (from knee to toes), happened after first lumbar surgery Fibromyalgia IBS (irritable bowel syndrome) Combination- diarrhea and constipation Diabetes mellitus, type 2 NIDDM Morbid obesity Interstitial cystitis "Stable" Fatty liver disease, nonalcoholic Hx of elevated of LFTs PCP monitoring GERD (gastroesophageal reflux disease) Controlled Migraine Hx PSA (psoriatic arthritis) Follows with rheum Rheumatoid arthritis Follows with rheum Ankylosing spondylitis Follows with rheum Hypertension Surgical History Nausea and vomiting after administration of anesthetic agent History of parotidectomy (2022) Left, benign tumor, [facility] History of tooth extraction History of lumbar fusion x3 (last 2021) History of breast biopsy benign S/P lymph node biopsy Right axillary (benign) Hx of lumpectomy x2 on right (benign) S/P endometrial ablation History of dilatation and curettage History of cystoscopy History of cholecystectomy S/P cervical spinal fusion ACDF x2 levels (unsure of which levels); limited ROM to right side History of colonoscopy History of esophagogastroduodenoscopy (EGD) Family History Aunt FHx: breast cancer, Onset Age: 70 Sister FHx: breast cancer, Onset Age: 36 Family history of diabetes mellitus Father Family history of diabetes mellitus FHx: coronary artery disease Mother Family history of diabetes mellitus Slow to wake up after anesthesia Grandmother (Paternal) Family history of diabetes mellitus Grandfather (Paternal) Family history of diabetes mellitus Brother Family history of diabetes mellitus Social History Smoking Status: Never smoker Second Hand Exposure: No; Do You Dip or Chew Tobacco: No; Tobacco Cessation Education Requested by Patient: No Hx Alcohol Use: No Hx Substance Use: No Preferred Language: Syriac Communication Ability: Effective Tube Repairer Required: No Beliefs That Will Affect Care: None Current Living Situation: Significant Other Current Living Situation Comment: lives with fiance Other Information That Helps Us Care for You: No Feels Safe at Home: Yes Safety Concerns: Feels Safe At This Time Assistive Devices: Cane, Denture - Upper and Glasses Physical Exam Physical Exam: Patient alert and oriented heart regular rhythm Lungs clear Results & Data Results & Data Vital Signs (Past 12 Hours) Vital Signs Temp Resp BP Pulse Ox O2 Del Method 04/09/25 07:30 36.7 C 18 153/87 H 97 Room Air
[2025-04-09] MEDS: ceFAZolin 3000MG 3,000 MG/72.5 ML BAG IV SCH (09:31)
[2025-04-09] MEDS ORDERED: PHENYLEPHRINE 100MCG/ML 5ML SYR ONE ×2 (09:56→10:15)
[2025-04-09] MEDS ORDERED: ePHEDrine sulfate 50 MG/5 ML SYR ONE (10:34)
[2025-04-09] MEDS: ceFAZolin 330 MG/ML 1 GM VIAL ONE (10:41)
[2025-04-09] MEDS: BUPIVACAINE/EPINEPHRINE 0.25% 1:200,000 30 ML VIAL ONE (10:41)
[2025-04-09] MEDS: FLOSEAL HEMOSTATIC MATRIX 10ML TOP ONE (11:20)
--- NOTE | 2025-04-09 11:25 | Operative Report ---
Post Operative Report Pre & Post Diagnosis Operation Date: 04/09/25 09:05 Pre-Op Diagnosis: #1 spondylosis with radiculopathy, lumbar region #2 lumbar spinal stenosis #3 morbid obesity Post-Op Diagnosis: Same I identified the patient and participated in the time-out.: Yes Procedure Operation Date: 04/09/25 09:05 Actual Procedures #1 decompression T12-L1 and L1-L2 with medial facetectomies and foraminotomies. #2 posterior spinal fusion T12-L2. #3 placed posterior instrumentation T12-L1 with connectors at L2-L3. #4 interbody fusion L1-L2. #5 placement of Spira 8 x 22 mm L1-L2. #6 placement of Koros combined with Proteus in the posterior lateral gutters and os design interbody space. #7 placement of versa wrap over the exposed dura. Surgeon Fermin Richardson, DO Inspector Automatic Typewriter Trish Alvarado Estimated Blood Loss 200 Findings See Below The patient is 5 foot 2 weighing over 125 kg with a BMI in excess of 50. The patient's body habitus created significant technical difficulty with positioning exposure and the procedure itself. This was also coupled with significant epidural scarring adding significant difficulty to the decompression. This at least 50% increased operative time. I am recommending a modifier 22 Specimens None Indications This is a 54-year-old female who presents problems diagnosis after failing course of nonoperative care is here for surgical invention. Description of Procedure Patient was met with identified and forms obtained. Patient was then taken to the operative suite underwent patient placed in a prone position on the Tobi table with a chest padded bolsters. All bony promises well-padded eyes inspected to ensure no external pressure placed upon them. This point the thoracolumbar spine was prepped and draped in normal sterile fashion. Sharp dissection with the assistance of Bovie cautery from down to expose the lamina transverse processes of T12 and L1 and instrumentation at L2-L3 bilaterally. Our deepest retractors were utilized to assist in visualization. I then performed a complete laminectomy of L1 with bilateral medial facetectomies and foraminotomies followed by laminectomy of T12 with bilateral medial facetectomies to address all subarticular stenosis. Pedicle screw was then placed in T12-L1 bilaterally with assistance of fluoroscopy and the connector attached to the nathan at L2-L3. By way of transforaminal approach and right complete discectomy of L1-L2 was performed endplates curetted to subcortical bleeding bone and an 8 x 22 mm Spira cage filled with os design bone graft tapped in position. The proper size rods were then contoured and locked into position bilaterally. The transverse processes of T12 L1-L2 burred to subcortical bleeding bone. Koros combined with Proteus placed in the posterolateral gutters. Reverse wrap placed of exposed dura. 15 round JAH drain inserted. The incision was then closed with 1 Vicryl the fascia 2-0 Vicryl subcutaneously and 4-0 Monocryl for final skin closure. Steri-Strips sterile dressing placed. Please note Trish Alvarado was present at the entire procedure on the patient positioning complex portion of the surgery and fascial closure. Patient was awakened taken the PACU stable condition. Im ordering 10 grams of Collagen Powder ([facility] A6010 Primary Dressing) and 10 bordered super absorbent ([facility] A6196 Secondary Dressing) to treat an incision wound that was caused by a spine procedure. The incision is approximately 2 cm(W) x 2 cm(L) down to the spinal column and epidural space 2 cm (D) in size and is a full thickness wound showing no signs of infection. Collagen comes in 1 gram packets so 10 packets were ordered. Given the size of the wound, with moderate exudate I chose to order a 10 day supply. The patient will be provided instructions for proper application of the collagen wound kit. The patient will be asked to apply the collagen powder daily and then cover it with sterile dressings dispensed. Collagen was selected as I expect the collagen to attract monocytes and fibroblasts, act as a sacrificial substrate for MMPs, and ultimately proved a matrix for tissue and vessel growth. The collagen will act as a primary dressing in this scenario. It is medically necessary for proper healing of these wounds to improve bioavailability and contact with each wound surface, this is also to help prevent infection of wounds and promote healing ultimately leading to a better healing outcome and limit the risk of infection. I attest to the content of the Intraoperative Record and any orders documented therein. Any exceptions are noted below.
--- NOTE | 2025-04-09 11:37 | Fluoroscopy Report ---
FL lumbar spine 2-3V CLINICAL HISTORY: L1-L2 DECOMPRESSION, T12-L2 FUSION COMPARISON STUDY: None FLUOROSCOPY TIME: 19 seconds FLUOROSCOPY IMAGES: 2 EXPOSURE DOSE: 17 mGy FINDINGS: Fluoroscopy was provided for lower thoracic and lumbar fusion. IMPRESSION: Intraoperative fluoroscopy. ACT 112: Negative or not required by law. Electronically signed by: Choco Joy M.D. 04/09/2025 11:36 AM
--- NOTE | 2025-04-09 12:22 | Anesthesiology Progress Note ---
Date of Service April 09, 2025 Anesthesia Post Procedure Vital Signs Vital Signs: Temp Pulse Resp BP Pulse Ox O2 Del Method O2 Flow Rate 04/09/25 12:15 36.6 C 77 13 148/82 H 95 Oxymask 2 04/09/25 12:05 80 13 138/64 97 Oxymask 6 04/09/25 11:55 86 17 133/87 98 Oxymask 6 04/09/25 11:45 81 13 110/75 100 Oxymask 8 04/09/25 11:37 36.0 C L 81 15 117/79 100 Oxymask 8 04/09/25 07:30 36.7 C 18 153/87 H 97 Room Air Pain Intensity Back: Pain Intensity: 4 Transfer of Care Handoff Completed per policy Notes Mental Status: alert / awake / arousable and participated in evaluation Patient Amnestic to Procedure: Yes Nausea / Vomiting: adequately controlled Pain: adequately controlled Airway Patency, RR, SpO2: stable & adequate BP & HR: stable & adequate Hydration State: stable & adequate Anesthetic Complications: no major complications apparent and Pt Satisfied with anesthetic care
[2025-04-09] MEDS: HYDROmorphone INJ 1 MG/ML SYRINGE IV PRN ×2 (13:39→20:01)
[2025-04-09] MEDS ORDERED: HYDROmorphone INJ 0.5 MG/0.5 ML SYR IV PRN ×2 (14:07→14:51)
[2025-04-09] MEDS: HYDROmorphone INJ 1 MG/ML SYRINGE ONE (14:10)
[2025-04-09] MEDS ORDERED: PROMETHAZINE 12.5 MG/50.5 ML BAG IV PRN (14:51)
[2025-04-09] MEDS ORDERED: SOD PHOSPHATE/SOD BIPHOSPHATE ENEMA 132 ML BTL PR PRN (14:51)
[2025-04-09] MEDS ORDERED: DO NOT ADMINISTER FLU VACCINE PRN (14:51)
[2025-04-09] MEDS ORDERED: CYCLOBENZAPRINE HCL 10 MG TAB PO PRN (14:51)
[2025-04-09] MEDS ORDERED: LORazepam 0.5 MG TAB PO PRN (14:51)
[2025-04-09] MEDS ORDERED: ALUMINUM/MAGNESIUM SUSP 30 ML UDC PO PRN (14:51)
[2025-04-09] MEDS ORDERED: LORazepam Inj 0.5 MG in SYRINGE 0.25 ML IV PRN (14:51)
[2025-04-09] MEDS ORDERED: DO NOT ADMINISTER PNEUMOCOCCAL VACCINE PRN (14:51)
[2025-04-09] MEDS ORDERED: NALOXONE HCL 0.4 MG/1 ML VIAL/CARP IV PRN (14:51)
[2025-04-09] MEDS ORDERED: ACETAMINOPHEN 1,000 MG/100 ML VIAL IV PRN (14:51)
[2025-04-09] MEDS ORDERED: FAMOTIDINE 20 MG TAB PO PRN (14:51)
[2025-04-09] MEDS ORDERED: METOCLOPRAMIDE HCL INJ 5 MG/ML 2 ML VIAL IV PRN (14:51)
[2025-04-09] MEDS ORDERED: MAGNESIUM HYDROXIDE SUSP 30 ML UDC PO PRN (14:51)
[2025-04-09] MEDS ORDERED: diphenhydrAMINE Capsule 25 MG CAP PO PRN (14:51)
[2025-04-09] MEDS: LR 60ML/HR IV SCH (15:02)
[2025-04-09] MEDS: SCOPOLAMINE 1 MG/72 HR TDSY PATCH TD STA (15:02)
[2025-04-09] MEDS: LACTATED RINGER'S 1,000 ML IV SCH (15:08)
--- NOTE | 2025-04-09 15:27 | Hospitalist Consultation ---
Date of Consultation April 09, 2025 Assessment & Plan (1) Spinal stenosis, lumbar region with neurogenic claudication: (2) Diabetes mellitus, type 2: (3) GERD (gastroesophageal reflux disease): (4) Rheumatoid arthritis: (5) Hypertension: (6) Aortic stenosis: (7) Other spondylosis with radiculopathy, lumbar region: Plan This is a 54 y/o female with spinal stenosis, DM2, moderate aortic stenosis, fatty liver, CKD, RA, GERD, HTN, ascending aortic aneurysm, chronic interstitial cystitis, morbid obesity, and other history as outlined below who underwent T12- L2 decompression and fusion today by Dr. Richardson and for whom we have been consulted to assist with post-operative medical management. Currently, her only concern is related to pain control from the procedure. #POD #0 T12-L2 decompression and fusion - Pain control, activity, and DVT prophylaxis per primary service - EBL 200 ml - check CBC in AM, monitor for post-op blood loss anemia. - PT/OT ordered - would encourage OOB as tolerated. #Type 2 Diabetes - last A1c earlier this month was 5.8 - Diabetic diet - Appreciate glycemic pharm assistance with insulin orderes - BSG ACHS #Hypertension - Chronic, stable - Continue home meds #CKD - baseline creatinine appears to be around 1.0 - BMP in the AM #Moderate aortic stenosis - stable per last cardio note scanned in the chart (reviewed) - Monitor fluid status Pt seen and reviewed with collaborating physician, Dr. Patel. Plan of care discussed and as outlined above. Thank you for this consultation. We will continue to follow this patient with you. A member of the [facility] Hospitalist team is available 01/02. Please don't hesitate to call with questions. Doug Evans PA-C Supervising Physician Co-Signing Physician Notes Patient seen and examined Agree with findings and plans as detailed by Amanda Evans PA-C History of Present Illness Reason for Consultation: Post-operative medical management Requesting Physician: Dr. Fermin Richardson Attending Physician: Fermin Richardson, DO History of Present Illness This is a 54 y/o female with spinal stenosis, DM2, moderate aortic stenosis, fatty liver, CKD, RA, GERD, HTN, ascending aortic aneurysm, chronic interstitial cystitis, morbid obesity, and other history as outlined below who underwent T12- L2 decompression and fusion today by Dr. Richardson and for whom we have been consulted to assist with post-operative medical management. Pt has had multiple spinal surgeries previously, but has continued to struggle with pain so underwent today's procedure. Currently, her main complaint is significant post- operative pain related to the procedure, different than the pain prior to her surgery. She denies chest pain, palpitations, dyspnea, or dizziness. Historically, she has struggled with nausea after anesthesia but reports that today she is not having any nausea. Tolerating sips of water without issue. She has chronic numbness in her right leg since once of her prior back surgeries, and this is unchanged. She reports her blood sugars are typically well- controlled although she only checks them sporadically. Allergies Allergy/AdvReac Type Severity Reaction Status Date / Time gabapentin Allergy Mild Itchy rash Verified 04/09/25 07:53 latex Allergy Mild Itchy rash Verified 04/09/25 07:53 meloxicam [From [facility]] Allergy Mild Itching Verified 04/09/25 07:53 Home Medications Medication Instructions Recorded Confirmed Type cyclobenzaprine 10 mg tablet 10 mg PO HS PRN Spasms 04/20/19 03/08/25 History furosemide 20 mg tablet (Lasix) 40 mg PO QAM 04/20/19 03/08/25 History lisinopril 10 mg tablet 10 mg PO QAM 04/20/19 03/08/25 History multivitamin 1 tab PO QAM 04/20/19 03/08/25 History ondansetron HCl 4 mg tablet 4 mg PO Q6H PRN Nausea 01/31/20 03/08/25 History (Zofran) pantoprazole 40 mg tablet,delayed 40 mg PO QAM 01/31/20 03/08/25 History release (Protonix) atorvastatin 10 mg tablet 10 mg PO HS 04/07/21 03/08/25 History diclofenac sodium 75 mg 75 mg PO BID 04/07/21 03/08/25 History tablet,delayed release fluoxetine 20 mg capsule 20 mg PO QAM 04/07/21 03/08/25 History sennosides 8.6 mg-docusate sodium 1 tab-cap PO QAM 04/07/21 03/08/25 History 50 mg tablet (Senna with Docusate Sodium) metoprolol succinate 25 mg 25 mg PO QAM 03/08/25 03/08/25 History tablet,extended release 24 hr pioglitazone 15 mg tablet (Actos) 15 mg PO QAM 03/08/25 03/08/25 History ropinirole 0.5 mg tablet 0.5 mg PO HS 03/08/25 03/08/25 History sulfasalazine 500 mg tablet 1,500 mg PO BID 03/08/25 03/08/25 History oxycodone 5 mg tablet 5 mg PO Q6H PRN pain #30 tabs 04/09/25 Rx tramadol 50 mg tablet 50 mg PO Q6H PRN pain, moderate 04/09/25 Rx #30 tabs Patient History Medical History Aortic stenosis Echo 09/04/24: Moderate aortic stenosis (MG 21 mmHg, DVI 0.3) Ascending aortic aneurysm Monitoring, "last check 4.3cm" Follows with [facility]/Thoracic Cardiac Surgeon Peripheral neuropathy RLE (from knee to toes), happened after first lumbar surgery Fibromyalgia IBS (irritable bowel syndrome) Combination- diarrhea and constipation Diabetes mellitus, type 2 NIDDM Morbid obesity Interstitial cystitis "Stable" Fatty liver disease, nonalcoholic Hx of elevated of LFTs PCP monitoring GERD (gastroesophageal reflux disease) Controlled Migraine Hx PSA (psoriatic arthritis) Follows with rheum Rheumatoid arthritis Follows with rheum Ankylosing spondylitis Follows with rheum Hypertension Surgical History Nausea and vomiting after administration of anesthetic agent History of parotidectomy (2022) Left, benign tumor, [facility] History of tooth extraction History of lumbar fusion x3 (last 2021) History of breast biopsy benign S/P lymph node biopsy Right axillary (benign) Hx of lumpectomy x2 on right (benign) S/P endometrial ablation History of dilatation and curettage History of cystoscopy History of cholecystectomy S/P cervical spinal fusion ACDF x2 levels (unsure of which levels); limited ROM to right side History of colonoscopy History of esophagogastroduodenoscopy (EGD) Family History Aunt FHx: breast cancer, Onset Age: 70 Sister FHx: breast cancer, Onset Age: 36 Family history of diabetes mellitus Father Family history of diabetes mellitus FHx: coronary artery disease Mother Family history of diabetes mellitus Slow to wake up after anesthesia Grandmother (Paternal) Family history of diabetes mellitus Grandfather (Paternal) Family history of diabetes mellitus Brother Family history of diabetes mellitus Social History Smoking Status: Never smoker Second Hand Exposure: No; Do You Dip or Chew Tobacco: No; Tobacco Cessation Education Requested by Patient: No Hx Alcohol Use: No Hx Substance Use: No Preferred Language: Nepalese Communication Ability: Effective Franchise Development Manager Required: No Beliefs That Will Affect Care: None Current Living Situation: Significant Other Current Living Situation Comment: lives with fibryant Other Information That Helps Us Care for You: No Feels Safe at Home: Yes Safety Concerns: Feels Safe At This Time Assistive Devices: Cane, Denture - Upper and Glasses Review of Systems Review of Systems: All systems reviewed & are unremarkable except as noted in Subjective Physical Exam Physical Exam: General: awake, alert, NAD HEENT: no scleral icterus, dry oral mucosa Neck: supple, trachea midline Heart: RRR, +systolic murmur Lungs: CTA bilaterally Abdomen: soft, NT, +BS Extremities: no pedal edema Neurologic: Ox3, no confusion or dysarthria, moving all extremities without gross focal deficit noted. Results & Data Results & Data Vital Signs (Past 12 Hours) Vital Signs Temp Pulse Pulse Resp BP Pulse Ox O2 Del Method 04/09/25 15:14 36.3 C L 85 16 121/77 95 Nasal Cannula 04/09/25 14:45 36.4 C L 89 12 122/72 97 Nasal Cannula 04/09/25 14:36 88 20 124/83 94 Nasal Cannula 04/09/25 14:15 88 14 142/85 H 96 Nasal Cannula 04/09/25 13:45 86 15 141/81 H 95 Oxymask 04/09/25 13:30 83 17 136/94 95 Oxymask 04/09/25 13:15 84 17 136/85 94 Oxymask 04/09/25 13:00 83 15 139/83 98 Oxymask 04/09/25 12:45 87 16 141/77 H 97 Oxymask 04/09/25 12:33 82 13 130/84 96 Oxymask 04/09/25 12:15 36.6 C 77 13 148/82 H 95 Oxymask 04/09/25 12:05 80 13 138/64 97 Oxymask 04/09/25 11:55 86 17 133/87 98 Oxymask 04/09/25 11:45 81 13 110/75 100 Oxymask 04/09/25 11:37 36.0 C L 81 15 117/79 100 Oxymask 04/09/25 07:30 36.7 C 18 153/87 H 97 Room Air O2 Flow Rate 04/09/25 15:14 2 04/09/25 14:45 2 04/09/25 14:36 2 04/09/25 14:15 2 04/09/25 13:45 2 04/09/25 13:30 2 04/09/25 13:15 2 04/09/25 13:00 2 04/09/25 12:45 2 04/09/25 12:33 2 04/09/25 12:15 2 04/09/25 12:05 6 04/09/25 11:55 6 04/09/25 11:45 8 04/09/25 11:37 8 04/09/25 07:30 Laboratory Results Pre-operative labs from 03/14/25 were reviewed including: hemoglobin 12.6, hematocrit 37.6 A1c 5.8 Creatinine 1.00 Medications Administered Acetaminophen (Acetaminophen 500 Mg Tab) 1,000 mg PO PREOP ANDRA Stop: 04/09/25 18:00 Last Admin: 04/09/25 08:15 Dose: 1,000 mg Documented By: CYNDI Celecoxib (Celebrex 200 Mg Cap) 200 mg PO PREOP ANDRA Stop: 04/09/25 18:00 Last Admin: 04/09/25 08:51 Dose: Not Given Documented By: CYNDI Lactated Ringer's (Lr) 1,000 mls @ 15 mls/hr IV .Q24H ANDRA Stop: 04/10/25 05:59 Last Infusion: 04/09/25 09:29 Dose: Infused Documented By: Admin: 04/09/25 08:14 Dose: 15 mls/hr Documented By: CYNDI Lactated Ringer's (Lr) 1,000 mls @ 60 mls/hr IV .[id number] ANDRA Stop: 04/09/25 22:39 Last Admin: 04/09/25 15:02 Dose: Not Given Documented By: KIMMIE Cefazolin Sodium (Ancef 3000mg) 3,000 mg in 72.5 mls @ 130 mls/hr IV PREOP ANDRA; Protocol Stop: 04/09/25 18:00 Last Infusion: 04/09/25 15:04 Dose: Infused Documented By: Admin: 04/09/25 09:31 Dose: 130 mls/hr Documented By: [id number] Lactated Ringer's (Lr) 1,000 mls @ 75 mls/hr IV .[id number] ANDRA Stop: 04/10/25 08:00 Last Admin: 04/09/25 15:08 Dose: 75 mls/hr Documented By: KIMMIE Discontinued Medications Bupivacaine HCl/Epinephrine Bitart (Bupivacaine/Epinephrine 0.25% 1:200,000 30 Ml Vial) Confirm Administered Dose 30 ml .ROUTE .STK-MED ONE Stop: 04/09/25 09:27 Last Admin: 04/09/25 10:41 Dose: 20 ml Documented By: GMB Cefazolin Sodium (Cefazolin 330 Mg/Ml 1 Gm Vial) Confirm Administered Dose 2,970 mg .ROUTE .STK-MED ONE Stop: 04/09/25 09:27 Last Admin: 04/09/25 10:41 Dose: 1,000 mg Documented By: HOLLY Fentanyl Citrate (Fentanyl Citrate Pf 100 Mcg/2 Ml Vial) 25 mcg IV Q5M PRN PRN Reason: PACU Use Only-Pain Stop: 04/09/25 16:43 Last Admin: 04/09/25 12:16 Dose: 25 mcg Documented By: Admin: 04/09/25 12:11 Dose: 25 mcg Documented By: Admin: 04/09/25 12:06 Dose: 25 mcg Documented By: Admin: 04/09/25 12:01 Dose: 25 mcg Documented By: MAIKEL Hydromorphone HCl (Hydromorphone Inj 1 Mg/Ml Syringe) 0.25 mg IV Q5M PRN PRN Reason: PACU Use Only-Pain Stop: 04/09/25 16:43 Last Admin: 04/09/25 14:04 Dose: 0.25 mg Documented By: Admin: 04/09/25 13:59 Dose: 0.25 mg Documented By: Admin: 04/09/25 13:44 Dose: 0.25 mg Documented By: Admin: 04/09/25 13:39 Dose: 0.25 mg Documented By: MAIKEL Hydromorphone HCl (Hydromorphone Inj 1 Mg/Ml Syringe) Confirm Administered Dose 2 mg .ROUTE .STK-MED ONE Stop: 04/09/25 14:10 Last Increment: 04/09/25 14:25 Dose: 0.25 mg Documented By: MAIKEL Increment: 04/09/25 14:20 Dose: 0.25 mg Documented By: JPG Increment: 04/09/25 14:15 Dose: 0.25 mg Documented By: AMH Increment: 04/09/25 14:10 Dose: 0.25 mg Documented By: KIM Miscellaneous ( Floseal Hemostatic Matrix 10ml) 10 ml TOP ONCE ONE Stop: 04/09/25 10:41 Last Admin: 04/09/25 11:20 Dose: 50 ml Documented By: HOLLY Scopolamine (Scopolamine 1 Mg/72 Hr Tdsy Patch) Confirm Administered Dose 1 patch TD .STK-MED ONE Stop: 04/09/25 08:55 Last Admin: 04/09/25 08:55 Dose: 1 patch Documented By: CYNDI Scopolamine (Scopolamine 1 Mg/72 Hr Tdsy Patch) 1 patch TD ONE STA Stop: 04/09/25 08:59 Last Admin: 04/09/25 15:02 Dose: Not Given Documented By: KIMMIE (2) Diabetes mellitus, type 2 Diabetes mellitus complication status: with other specified complication Di abetes mellitus dedicated intermodal truck driver insulin use: without dedicated intermodal truck driver use Qualified Code(s): E11.69 - Type 2 diabetes mellitus with other specified complication (3) GERD (gastroesophageal reflux disease) Esophagitis presence: esophagitis presence not specified Qualified Code(s): K21.9 - Gastro-esophageal reflux disease without esophagitis (4) Rheumatoid arthritis Rheumatoid arthritis location: unspecified site Rheumatoid factor presence: unspecified presence Qualified Code(s): M06.9 - Rheumatoid arthritis, unspecified (5) Hypertension Hypertension type: unspecified Qualified Code(s): I10 - Essential (primary) hypertension (6) Aortic stenosis Cardiac valve disease etiology: etiology unspecified Qualified Code(s): I35.0 - Nonrheumatic aortic (valve) stenosis
[2025-04-09] MEDS: CHECK SCOPOLAMINE PATCH PLACEMENT SCH (16:57)
[2025-04-09] MEDS: INSULIN ASPART PER UNIT CHARGE SC SCH (17:29)
[2025-04-09] MEDS: ATORVASTATIN 10 MG TAB PO SCH (20:04)
[2025-04-09] MEDS: DOCUSATE SODIUM/SENNA 50/8.6MG TAB PO SCH (20:09)
[2025-04-10] MEDS: POLYETHYLENE (MIRALAX) 17 GM PACK PO SCH (06:17)
[2025-04-10 07:47] LABS: Hematocrit (blood only) 34.1 % (37.0-47.0); Hemoglobin 11.2 g/dl (12.0-16.0); Immature Granulocytes # (auto) 0.05 K/uL (0.01-0.20); Immature Granulocytes % (auto) 0.5 %; Mean Corpuscular Hemoglobin 31.2 pg (25.0-34.0); Mean Corpuscular Volume 95.0 fL (80.0-100.0); Platelet Count 183 K/uL (130-400); RDW Standard Deviation 47.7 fL (36.4-46.3); Red Blood Count 3.59 M/uL (4.20-5.40); White Blood Count 9.84 K/ul (4.8-10.8)
[2025-04-10 08:03] LABS: Anion Gap 6.0 (3-11); Blood Urea Nitrogen 15.0 mg/dl (6-23); Calcium 8.5 mg/dl (8.6-10.3); Carbon Dioxide 27.0 mmol/L (21-32); Chloride 104.0 mmol/L (98-107); Creatinine Clr Calc Pharmacy 111.8 ml/min; Glucose 103.0 mg/dl (70-99(Fasting)); Potassium 4.0 mmol/L (3.5-5.1); Sodium 137.0 mmol/L (136-145)
[2025-04-10] MEDS ORDERED: PIOGLITAZONE HCL 15 MG TAB PO SCH (09:00)
--- NOTE | 2025-04-10 09:11 | Hospitalist Progress Note ---
Date of Service April 10, 2025 Assessment & Plan (1) Other spondylosis with radiculopathy, lumbar region: (2) Diabetes mellitus, type 2: (3) GERD (gastroesophageal reflux disease): (4) Rheumatoid arthritis: (5) Hypertension: (6) Aortic stenosis: Plan 54 year old female with PMH significant for DM2, fatty liver, RA, psoriatic arthritis, ankylosing spondylosis, fibromyalgia, RLS, HTN, moderate aortic stenosis, ascending aortic aneurysm, GERD, depression/anxiety, morbid obesity, ARABELLA not on CPAP, and lumbar spondylosis with radiculopathy who underwent T12-L2 decompression and fusion on 04/09/[address] Richardson. We have been consulted for post operative medical management. Lumbar spondylosis with radiculopathy POD#1 T12-L2 decompression and fusion on 04/09/[address] Richardson Activity level, pain control, DVT prophylaxis, bowel regimen, wound/drain care per primary team Encourage incentive spirometer OT evaluation below functional baseline - continue services while inpatient PT consult pending Acute blood loss anemia Preop Hgb 12.6-> 11.2 today EBL 200cc and JAH drain output 455cc so far Patient dizzy but also hypotensive Monitor CBC Hypotension BPs 80/50s this morning Home lasix and lisinopril held Continue metoprolol 1L NSS bolus ordered Monitor BPs closely Diabetes A1C earlier this month was 5.8 Home Actos on hold BSG ACHS and SSI while inpatient Glycemic pharmacy consulted Moderate aortic stenosis Follows with [facility] Echo in Aug 2024 revealed EF 60%, no regional wall motion abnormalities, moderate aortic stenosis Stable per last cardiology note Ascending aortic aneurysm Follows with Cardiovascular Surgery in [place] Stable per last cardiology note Depression/anxiety Continue fluoxetine GERD Continue pantoprazole RLS Continue ropinirole RA/PSA/ Home sulfasalazine on hold DVT Prophylaxis:TEDs/SCDs Code Status: FULL CODE PCP: Kayleigh Lugo () Disposition: per primary team Patient seen in collaboration with Dr Bajwa. Please see addendum. Thank you for this consultation. We will continue to follow this patient with you. A member of the [facility] Hospitalist team is available 01/02 via the role in [employer] - please don't hesitate to reach out with questions. I spent a total of 50 minutes coordinating, documenting and providing care for this patient excluding time spent in the performance of separately billed services or time spent by another provider/QHP. Admission and Anticipated Discharge Date Admission Date: April 09, 2025 Supervising Physician Co-Signing Physician Notes Patient seen and examined at bedside. She is sitting up on a chair at the side of the bed comfortably; reports pain at the incision site. Noted to be hypotensive in the morning for which patient was given 1 L of NSS bolus and is currently placed on IV fluids at 125 cc/h. Hold off on lisinopril and Lasix Continue monitor blood pressure I have reviewed the advanced practitioner's documentation, and I agree with, and take responsibility for the plan of care I spent a total of 20 minutes coordinating, documenting, and providing care for this patient excluding time spent in the performance of separately billed services. All of the aforementioned completed while collaborating with the assigned advanced practitioner for a full treatment plan Subjective Patient seen laying in bed Reports 10/10 low back pain at her incision site Reports right lower leg numbness that is chronic for her Notes dizziness with ambulation - nursing reported hypotension this morning Denies numbness/tingling of left leg Denies chest pain, SOB, abdominal pain, N/V Has not passed gas or had BM yet Review of Systems Review of Systems: All systems reviewed & are unremarkable except as noted in HPI & below Physical Exam Physical Exam: General/Psych: obese, laying in bed, appears uncomfortable, conversing easily Head: normocephalic, atraumatic Eyes: normal inspection, PERRL, conjunctivae pink ENT: external ear and nose normal, oropharynx normal Neck: normal visual inspection, trachea midline Respiratory: normal respiratory effort, lungs clear to auscultation, no wheeze/rales/rhonchi, no accessory muscle use Cardiovascular: regular rate and rhythm, aortic murmur appreciated, no JVD Extremities: no cyanosis or clubbing, normal peripheral pulses, no BLE edema, sensation intact BLE Abdomen/GI: hypoactive bowel sounds, soft, nontender : ritter in place Neurologic/MSK: A+Ox3, motor strength 5/5, moves all extremities Skin: no rashes, normal color, warm and dry, island dressing c/d/i, JAH drain with sanguinous output Results & Data Results & Data Vital Signs (Past 12 Hours) Vital Signs Temp Pulse Pulse Resp BP BP Pulse Ox 04/10/25 07:29 36.8 C 100 H 18 119/72 92 04/10/25 02:59 36.8 C 92 H 16 119/68 95 04/09/25 23:18 36.6 C 94 H 15 133/82 94 O2 Del Method 04/10/25 07:29 Room Air 04/10/25 02:59 Room Air 04/09/25 23:18 Room Air Laboratory Results Short CBC 04/10/25 Range/Units 07:15 WBC 9.84 (4.8-10.8) K/ul Hgb 11.2 L (12.0-16.0) g/dl Hct 34.1 L (37.0-47.0) % Plt Count 183 (130-400) K/uL BMP 04/10/25 07:15 Sodium 137 Potassium 4.0 Chloride 104 Carbon Dioxide 27 BUN 15 Creatinine 0.72 Glucose 103 H Calcium 8.5 L I have independently reviewed and interpreted patient's labs including CBC and BMP Medications Administered Current Inpatient Medications Acetaminophen (Acetaminophen 500 Mg Tab) 1,000 mg PO Q8H PRN PRN Reason: MILD Pain (1,2,3) & Pre PT Stop: 05/09/25 14:50 Al Hydrox/Mg Hydrox/Simethicone (Aluminum/Magnesium Susp 30 Ml Udc) 30 ml PO Q6H PRN PRN Reason: Dyspepsia Stop: 05/09/25 14:50 Atorvastatin Calcium (Atorvastatin 10 Mg Tab) 10 mg PO HS ANDRA Stop: 05/09/25 20:59 Last Admin: 04/09/25 20:04 Dose: 10 mg Bisacodyl (Bisacodyl 10 Mg Supp) 10 mg [place] DAILY PRN PRN Reason: Constipation Stop: 05/09/25 14:50 Cyclobenzaprine HCl (Cyclobenzaprine Hcl 10 Mg Tab) 10 mg PO HS PRN PRN Reason: Spasms Stop: 05/09/25 14:50 Diphenhydramine HCl (Diphenhydramine Capsule 25 Mg Cap) 25 mg PO Q6H PRN PRN Reason: Allergic Rhinitis/Insomnia Stop: 05/09/25 14:50 Famotidine (Famotidine 20 Mg Tab) 20 mg PO Q12H PRN PRN Reason: Dyspepsia Stop: 05/09/25 14:50 Fluoxetine HCl (Fluoxetine Hcl 20 Mg Cap) 20 mg PO [facility] Stop: 05/10/25 08:59 Last Admin: 04/10/25 09:43 Dose: 20 mg Furosemide (Furosemide 40 Mg Tab) 40 mg PO [facility] Stop: 05/10/25 08:59 Last Admin: 04/10/25 09:39 Dose: Not Given Hydromorphone HCl (Hydromorphone Inj 0.5 Mg/0.5 Ml Syr) 0.25 mg IV Q5M PRN PRN Reason: Mod-Sev Pain (Scale 4-10) Stop: 04/23/25 14:06 Hydromorphone HCl (Hydromorphone Inj 0.5 Mg/0.5 Ml Syr) 0.5 mg IV Q3H PRN PRN Reason: MODERATE Pain(4,5,6)/Pre PT Stop: 04/23/25 14:50 Hydromorphone HCl (Hydromorphone Inj 1 Mg/Ml Syringe) 1 mg IV Q3H PRN PRN Reason: SEVERE Pain (7,8,9,10) Stop: 04/23/25 14:50 Last Admin: 04/10/25 01:27 Dose: 1 mg Hydroxyzine HCl (Hydroxyzine Hcl 25 Mg Tab) 25 mg PO Q8H PRN PRN Reason: Anxiety Stop: 05/09/25 14:50 Acetaminophen (Ofirmev) 1,000 mg in 100 mls @ 400 mls/hr IV Q8H PRN PRN Reason: MILD Pain (1,2,3) & Pre PT Stop: 04/10/25 14:53 Promethazine HCl (Phenergan) 12.5 mg in 50.5 mls @ 202 mls/hr IV Q6H PRN PRN Reason: Nausea And Vomiting Stop: 05/09/25 14:50 Cefazolin Sodium (Ancef 2000mg) 2,000 mg in 15 mls @ 3.75 mls/min IV Q8H [facility] Stop: 04/12/25 10:03 Last Infusion: 04/10/25 10:35 Dose: Infused Lorazepam 0.5 mg/ Syringe 0.5 mls @ 2 mls/min IV Q8H PRN PRN Reason: Sedation/Anxiety Stop: 05/09/25 14:50 Dexamethasone 6 mg/ Syringe 1.5 mls @ 1 mls/min IV DAILY ANDRA Stop: 04/12/25 09:02 Last Admin: 04/10/25 09:46 Dose: 1 mls/min Sodium Chloride (Nss) 1,000 mls @ 999 mls/hr IV .Q1H1M ONE Stop: 04/10/25 11:52 Last Admin: 04/10/25 10:58 Dose: 999 mls/hr Influenza Virus Vaccine Quadrival (Do Not Administer Flu Vaccine) 1 each N/A PRN PRN PRN Reason: Notification Stop: 05/09/25 14:50 Insulin Aspart (Insulin Aspart Per Unit Charge) 0 units SC ACHS [facility] Stop: 05/09/25 16:29 Last Admin: 04/10/25 09:38 Dose: Not Given Lisinopril (Lisinopril 10 Mg Tab) 10 mg PO QAM [facility] Stop: 05/10/25 08:59 Last Admin: 04/10/25 09:39 Dose: Not Given Lorazepam (Lorazepam 0.5 Mg Tab) 0.5 mg PO Q8H PRN PRN Reason: Sedation/Anxiety Stop: 05/09/25 14:50 Magnesium Hydroxide (Magnesium Hydroxide Susp 30 Ml Udc) 30 ml PO Q24H PRN PRN Reason: Constipation Stop: 05/09/25 14:50 Metoclopramide HCl (Metoclopramide Hcl Inj 5 Mg/Ml 2 Ml Vial) 10 mg IV Q6H PRN PRN Reason: Nausea &/or Vomiting Stop: 05/09/25 14:50 Metoprolol Succinate (Metoprolol Succ 25mg Ext Rel Tab) 25 mg PO QAM [facility] Stop: 05/10/25 08:59 Last Admin: 04/10/25 09:37 Dose: Not Given Miscellaneous (Check Scopolamine Patch Placement) 1 each N/A QS [facility] Stop: 04/12/25 05:59 Last Admin: 04/10/25 07:50 Dose: 1 each Miscellaneous (Remove Transderm-Scop Patch) 1 each N/A ONE ONE Stop: 04/12/25 06:01 Multivitamins (Multivitamin Tab) 1 tab PO QAM [facility] Stop: 05/10/25 08:59 Last Admin: 04/10/25 09:43 Dose: 1 tab Naloxone HCl (Naloxone Hcl 0.4 Mg/1 Ml Vial/Carp) 0.1 mg IV Q5M PRN PRN Reason: Oversedation/Resp depression Stop: 05/09/25 14:50 Ondansetron HCl (Ondansetron Inj 2 Mg/Ml 2 Ml Vial) 4 mg IV Q6H PRN PRN Reason: Nausea &/or Vomiting Stop: 05/09/25 14:50 Ondansetron HCl (Ondansetron 4 Mg Od Tab) 4 mg PO Q6H PRN PRN Reason: Nausea Stop: 05/09/25 14:50 Oxycodone HCl (Oxycodone Hcl Ir 5 Mg Tab (Immediate Release)) 5 - 10 mg PO Q4H PRN PRN Reason: MOD/SEV Pain & Pre PT Stop: 04/23/25 14:50 Last Admin: 04/10/25 07:46 Dose: 10 mg Pantoprazole Sodium (Pantoprazole 40 Mg Tab) 40 mg PO QAM [facility] Stop: 05/10/25 08:59 Last Admin: 04/10/25 09:43 Dose: 40 mg Pneumococcal Polyvalent Vaccine (Do Not Administer Pneumococcal Vaccine) 1 each N/A PRN PRN PRN Reason: Notification Stop: 05/09/25 14:50 Polyethylene Glycol (Polyethylene (Miralax) 17 Gm Pack) 17 gm PO Q6 [facility] Stop: 05/10/25 05:59 Last Admin: 04/10/25 06:17 Dose: 17 gm Ropinirole HCl (Ropinirole Hcl 0.25 Mg Tablet) 0.5 mg PO HS [facility] Stop: 05/09/25 20:59 Last Admin: 04/09/25 20:04 Dose: 0.5 mg Senna/Docusate Sodium (Docusate Sodium/Senna 50/8.6mg Tab) 2 tab PO HS [facility]RA Stop: 05/09/25 20:59 Last Admin: 04/09/25 20:09 Dose: 2 tab Sodium Biphosphate/Sodium Phosphate (Sod Phosphate/Sod Biphosphate Enema 132 Ml Btl) 132 ml OR ONE PRN PRN Reason: Constipation Stop: 05/09/25 14:50 Tramadol HCl (Tramadol Hcl 50 Mg Tablet) 50 - 100 mg PO Q4H PRN PRN Reason: MOD/SEV Pain & Pre PT Stop: 05/09/25 14:50 (2) Diabetes mellitus, type 2 Diabetes mellitus complication status: with other specified complication Diabetes mellitus oil heaterman insulin use: without oil heaterman use Qualified Code(s): E11.69 - Type 2 diabetes mellitus with other specified complication (3) GERD (gastroesophageal reflux disease) Esophagitis presence: esophagitis presence not specified Qualified Code(s): K21.9 - Gastro-esophageal reflux disease without esophagitis (4) Rheumatoid arthritis Rheumatoid arthritis location: unspecified site Rheumatoid factor presence: unspecified presence Qualified Code(s): M06.9 - Rheumatoid arthritis, unspecified (5) Hypertension Hypertension type: unspecified Qualified Code(s): I10 - Essential (primary) hypertension (6) Aortic stenosis Cardiac valve disease etiology: etiology unspecified Qualified Code(s): I35.0 - Nonrheumatic aortic (valve) stenosis
--- NOTE | 2025-04-10 09:26 | Orthopedic Progress Note ---
Date of Service April 10, 2025 Assessment & Plan (1) Other spondylosis with radiculopathy, lumbar region: Plan: At this point we will continue with physical therapy monitor JAH output hopefully discharge home in the next few days. Admission and Anticipated Discharge Date Admission Date: April 09, 2025 Subjective Back pain controlled leg symptoms improved Physical Exam Physical Exam: Patient is in the chair at the bedside. She is comfortable. Constricted testing. Results & Data Vital Signs (Past 12 Hours) Vital Signs Temp Pulse Pulse Resp BP BP Pulse Ox 04/10/25 07:29 36.8 C 100 H 18 119/72 92 04/10/25 02:59 36.8 C 92 H 16 119/68 95 04/09/25 23:18 36.6 C 94 H 15 133/82 94 O2 Del Method 04/10/25 07:29 Room Air 04/10/25 02:59 Room Air 04/09/25 23:18 Room Air Queries Orthopedic Spine Obesity: Yes
[2025-04-10] MEDS: METOPROLOL SUCC 25MG EXT REL TAB PO SCH (09:37)
[2025-04-10] MEDS: FUROSEMIDE 40 MG TAB PO SCH (09:39)
[2025-04-10] MEDS: MULTIVITAMIN TAB PO SCH (09:43)
[2025-04-10] MEDS: dexAMETHasone 6 MG in SYRINGE 0 ML IV SCH (09:46)
[2025-04-10] MEDS: SODIUM CHLORIDE 0.9% 500 ML IV SCH (10:45)
[2025-04-10] MEDS: SODIUM CHLORIDE 0.9% 1,000 ML IV ONE (10:58)
[2025-04-10] MEDS: SODIUM CHLORIDE 0.9% 500 ML IV ONE (10:59)
[2025-04-10] MEDS: SODIUM CHLORIDE 0.9% 1,000 ML IV SCH (13:45)
[2025-04-11] MEDS: ACETAMINOPHEN 500 MG TAB PO PRN (08:04)
--- NOTE | 2025-04-11 08:14 | Hospitalist Progress Note ---
Date of Service April 11, 2025 Assessment & Plan (1) Other spondylosis with radiculopathy, lumbar region: (2) Diabetes mellitus, type 2: (3) GERD (gastroesophageal reflux disease): (4) Rheumatoid arthritis: (5) Hypertension: (6) Aortic stenosis: Plan 54 year old female with PMH significant for DM2, fatty liver, RA, psoriatic arthritis, ankylosing spondylosis, fibromyalgia, RLS, HTN, moderate aortic stenosis, ascending aortic aneurysm, GERD, depression/anxiety, morbid obesity, ARABELLA not on CPAP, and lumbar spondylosis with radiculopathy who underwent T12-L2 decompression and fusion on 04/09/[address] Richardson. We have been consulted for post operative medical management. Lumbar spondylosis with radiculopathy POD#2 T12-L2 decompression and fusion on 04/09/[address] Richardson Activity level, pain control, DVT prophylaxis, bowel regimen, wound/drain care per primary team Encourage incentive spirometer PT/OT recommending return home with spouse Anticipate DC tomorrow Acute blood loss anemia Preop Hgb 12.6-> 11.2->11.5 today EBL 200cc and JAH drain output 560cc so far Monitor CBC Hypotension BPs 80/50s yesterday BPs stabilized after 1L NSS Home lasix and lisinopril initially held-> resumed today Continue metoprolol Diabetes A1C earlier this month was 5.8 Home Actos on hold BSG ACHS and SSI while inpatient Glycemic pharmacy consulted Moderate aortic stenosis Follows with [facility] Echo in Aug 2024 revealed EF 60%, no regional wall motion abnormalities, moderate aortic stenosis Stable per last cardiology note Ascending aortic aneurysm Follows with Cardiovascular Surgery in [place] Stable per last cardiology note Depression/anxiety Continue fluoxetine GERD Continue pantoprazole RLS Continue ropinirole RA/PSA/ Home sulfasalazine on hold DVT Prophylaxis: TEDs/SCDs Code Status: FULL CODE PCP: Kayleigh Lugo () Disposition: per primary team Patient seen in collaboration with Dr Ng. Please see addendum. Thank you for this consultation. We will continue to follow this patient with you. [facility] via the role in [employer] - please don't hesitate to reach out with questions. I spent a total of 40 minutes coordinating, documenting and providing care for this patient excluding time spent in the performance of separately billed services or time spent by another provider/QHP. Admission and Anticipated Discharge Date Admission Date: April 09, 2025 Supervising Physician Co-Signing Physician Notes Patient seen and examined at bedside. She is sitting up on a chair at the side of the bed comfortably; reports pain at the incision site. reports improvement in ble radicular s/s. BP has improved, will resume home meds, monitor. Continue monitor blood pressure I have reviewed the advanced practitioner's documentation, and I agree with, and take responsibility for the plan of care I spent a total of 15 minutes coordinating, documenting, and providing care for this patient excluding time spent in the performance of separately billed services. All of the aforementioned completed while collaborating with the assigned advanced practitioner for a full treatment plan Subjective Patient seen sitting up in bed Reports pain is improved from yesterday - feels better when she moves Dizziness is resolved Denies chest pain, SOB, abdominal pain, N/V Passing gas but no BM yet Review of Systems Review of Systems: All systems reviewed & are unremarkable except as noted in HPI & below Physical Exam Physical Exam: General/Psych: obese, sitting in chair, NAD, conversing easily Head: normocephalic, atraumatic Eyes: normal inspection, PERRL, conjunctivae pink ENT: external ear and nose normal, oropharynx normal Neck: normal visual inspection, trachea midline Respiratory: normal respiratory effort, lungs clear to auscultation, no wheeze/rales/rhonchi, no accessory muscle use Cardiovascular: regular rate and rhythm, aortic murmur appreciated, no JVD Extremities: no cyanosis or clubbing, normal peripheral pulses, no BLE edema, sensation intact BLE Abdomen/GI: hypoactive bowel sounds, soft, nontender Neurologic/MSK: A+Ox3, motor strength 5/5, moves all extremities Skin: no rashes, normal color, warm and dry, island dressing c/d/i, JAH drain with sanguinous output Results & Data Results & Data Vital Signs (Past 12 Hours) Vital Signs Temp Pulse Pulse Resp BP Pulse Ox O2 Del Method 04/11/25 07:30 37.9 C H 104 H 20 140/82 99 Room Air 04/10/25 23:00 37.0 C 95 H 20 131/66 95 Room Air Laboratory Results Short CBC 04/11/25 Range/Units 07:30 WBC 6.89 (4.8-10.8) K/ul Hgb 11.5 L (12.0-16.0) g/dl Hct 32.9 L (37.0-47.0) % Plt Count 157 (130-400) K/uL BMP 04/11/25 07:30 Sodium 137 Potassium 3.7 Chloride 104 Carbon Dioxide 27 BUN 15 Creatinine 0.85 Glucose 100 H Calcium 8.3 L I have independently reviewed and interpreted patient's labs including CBC and BMP Medications Administered Current Inpatient Medications Acetaminophen (Acetaminophen 500 Mg Tab) 1,000 mg PO Q8H PRN PRN Reason: MILD Pain (1,2,3) & Pre PT Stop: 05/09/25 14:50 Last Admin: 04/11/25 08:04 Dose: 1,000 mg Al Hydrox/Mg Hydrox/Simethicone (Aluminum/Magnesium Susp 30 Ml Udc) 30 ml PO Q6H PRN PRN Reason: Dyspepsia Stop: 05/09/25 14:50 Atorvastatin Calcium (Atorvastatin 10 Mg Tab) 10 mg PO HS ANDRA Stop: 05/09/25 20:59 Last Admin: 04/10/25 20:22 Dose: 10 mg Bisacodyl (Bisacodyl 10 Mg Supp) 10 mg [place] DAILY PRN PRN Reason: Constipation Stop: 05/09/25 14:50 Cyclobenzaprine HCl (Cyclobenzaprine Hcl 10 Mg Tab) 10 mg PO HS PRN PRN Reason: Spasms Stop: 05/09/25 14:50 Diphenhydramine HCl (Diphenhydramine Capsule 25 Mg Cap) 25 mg PO Q6H PRN PRN Reason: Allergic Rhinitis/Insomnia Stop: 05/09/25 14:50 Famotidine (Famotidine 20 Mg Tab) 20 mg PO Q12H PRN PRN Reason: Dyspepsia Stop: 05/09/25 14:50 Fluoxetine HCl (Fluoxetine Hcl 20 Mg Cap) 20 mg PO QAM [facility] Stop: 05/10/25 08:59 Last Admin: 04/11/25 10:00 Dose: 20 mg Furosemide (Furosemide 40 Mg Tab) 40 mg PO QAM [facility] Stop: 05/10/25 08:59 Last Admin: 04/11/25 10:00 Dose: 40 mg Hydromorphone HCl (Hydromorphone Inj 0.5 Mg/0.5 Ml Syr) 0.25 mg IV Q5M PRN PRN Reason: Mod-Sev Pain (Scale 4-10) Stop: 04/23/25 14:06 Hydromorphone HCl (Hydromorphone Inj 0.5 Mg/0.5 Ml Syr) 0.5 mg IV Q3H PRN PRN Reason: MODERATE Pain(4,5,6)/Pre PT Stop: 04/23/25 14:50 Hydromorphone HCl (Hydromorphone Inj 1 Mg/Ml Syringe) 1 mg IV Q3H PRN PRN Reason: SEVERE Pain (7,8,9,10) Stop: 04/23/25 14:50 Last Admin: 04/10/25 13:43 Dose: 1 mg Hydroxyzine HCl (Hydroxyzine Hcl 25 Mg Tab) 25 mg PO Q8H PRN PRN Reason: Anxiety Stop: 05/09/25 14:50 Promethazine HCl (Phenergan) 12.5 mg in 50.5 mls @ 202 mls/hr IV Q6H PRN PRN Reason: Nausea And Vomiting Stop: 05/09/25 14:50 Cefazolin Sodium (Ancef 2000mg) 2,000 mg in 15 mls @ 3.75 mls/min IV Q8H [facility] Stop: 04/12/25 10:03 Last Infusion: 04/11/25 10:26 Dose: Infused Lorazepam 0.5 mg/ Syringe 0.5 mls @ 2 mls/min IV Q8H PRN PRN Reason: Sedation/Anxiety Stop: 05/09/25 14:50 Dexamethasone 6 mg/ Syringe 1.5 mls @ 1 mls/min IV DAILY [facility] Stop: 04/12/25 09:02 Last Admin: 04/11/25 09:58 Dose: 1 mls/min Influenza Virus Vaccine Quadrival (Do Not Administer Flu Vaccine) 1 each N/A PRN PRN PRN Reason: Notification Stop: 05/09/25 14:50 Insulin Aspart (Insulin Aspart Per Unit Charge) 0 units SC ACHS [facility] Stop: 05/09/25 16:29 Last Admin: 04/11/25 08:40 Dose: Not Given Lisinopril (Lisinopril 10 Mg Tab) 10 mg PO QAM [facility] Stop: 05/10/25 08:59 Last Admin: 04/11/25 10:00 Dose: 10 mg Lorazepam (Lorazepam 0.5 Mg Tab) 0.5 mg PO Q8H PRN PRN Reason: Sedation/Anxiety Stop: 05/09/25 14:50 Magnesium Hydroxide (Magnesium Hydroxide Susp 30 Ml Udc) 30 ml PO Q24H PRN PRN Reason: Constipation Stop: 05/09/25 14:50 Metoclopramide HCl (Metoclopramide Hcl Inj 5 Mg/Ml 2 Ml Vial) 10 mg IV Q6H PRN PRN Reason: Nausea &/or Vomiting Stop: 05/09/25 14:50 Metoprolol Succinate (Metoprolol Succ 25mg Ext Rel Tab) 25 mg PO [facility] Stop: 05/10/25 08:59 Last Admin: 04/11/25 09:59 Dose: 25 mg Miscellaneous (Check Scopolamine Patch Placement) 1 each N/A QS [facility] Stop: 04/12/25 05:59 Last Admin: 04/11/25 08:01 Dose: 1 each Miscellaneous (Remove Transderm-Scop Patch) 1 each N/A ONE ONE Stop: 04/12/25 06:01 Multivitamins (Multivitamin Tab) 1 tab PO [facility] Stop: 05/10/25 08:59 Last Admin: 04/11/25 10:00 Dose: 1 tab Naloxone HCl (Naloxone Hcl 0.4 Mg/1 Ml Vial/Carp) 0.1 mg IV Q5M PRN PRN Reason: Oversedation/Resp depression Stop: 05/09/25 14:50 Ondansetron HCl (Ondansetron Inj 2 Mg/Ml 2 Ml Vial) 4 mg IV Q6H PRN PRN Reason: Nausea &/or Vomiting Stop: 05/09/25 14:50 Ondansetron HCl (Ondansetron 4 Mg Od Tab) 4 mg PO Q6H PRN PRN Reason: Nausea Stop: 05/09/25 14:50 Oxycodone HCl (Oxycodone Hcl Ir 5 Mg Tab (Immediate Release)) 5 - 10 mg PO Q4H PRN PRN Reason: MOD/SEV Pain & Pre PT Stop: 04/23/25 14:50 Last Admin: 04/11/25 09:58 Dose: 5 mg Pantoprazole Sodium (Pantoprazole 40 Mg Tab) 40 mg PO QAM [facility] Stop: 05/10/25 08:59 Last Admin: 04/11/25 10:00 Dose: 40 mg Pneumococcal Polyvalent Vaccine (Do Not Administer Pneumococcal Vaccine) 1 each N/A PRN PRN PRN Reason: Notification Stop: 05/09/25 14:50 Polyethylene Glycol (Polyethylene (Miralax) 17 Gm Pack) 17 gm PO Q6 [facility] Stop: 05/10/25 05:59 Last Admin: 04/11/25 05:48 Dose: 17 gm Ropinirole HCl (Ropinirole Hcl 0.25 Mg Tablet) 0.5 mg PO HS [facility] Stop: 05/09/25 20:59 Last Admin: 04/10/25 20:22 Dose: 0.5 mg Senna/Docusate Sodium (Docusate Sodium/Senna 50/8.6mg Tab) 2 tab PO HS [facility] Stop: 05/09/25 20:59 Last Admin: 04/10/25 20:21 Dose: 2 tab Sodium Biphosphate/Sodium Phosphate (Sod Phosphate/Sod Biphosphate Enema 132 Ml Btl) 132 ml [place] ONE PRN PRN Reason: Constipation Stop: 05/09/25 14:50 Tramadol HCl (Tramadol Hcl 50 Mg Tablet) 50 - 100 mg PO Q4H PRN PRN Reason: MOD/SEV Pain & Pre PT Stop: 05/09/25 14:50 (2) Diabetes mellitus, type 2 Diabetes mellitus complication status: with other specified complication 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: without residential use Qualified Code(s): E11.69 - Type 2 diabetes mellitus with other specified complication (3) GERD (gastroesophageal reflux disease) Esophagitis presence: esophagitis presence not specified Qualified Code(s): K21.9 - Gastro-esophageal reflux disease without esophagitis (4) Rheumatoid arthritis Rheumatoid arthritis location: unspecified site Rheumatoid factor presence: unspecified presence Qualified Code(s): M06.9 - Rheumatoid arthritis, unspecified (5) Hypertension Hypertension type: unspecified Qualified Code(s): I10 - Essential (primary) hypertension (6) Aortic stenosis Cardiac valve disease etiology: etiology unspecified Qualified Code(s): I35.0 - Nonrheumatic aortic (valve) stenosis
--- NOTE | 2025-04-11 08:20 | Orthopedic Progress Note ---
Date of Service April 11, 2025 Assessment & Plan (1) Other spondylosis with radiculopathy, lumbar region: Plan: At this time we will continue physical therapy monitor JAH output anticipate discharge on tomorrow. Admission and Anticipated Discharge Date Admission Date: April 09, 2025 Subjective Patient is currently struggling with back pain. She is tolerating physical therapy. Denies any leg pain. Physical Exam Physical Exam: Patient is in the chair at the bedside. She is comfortable. The strength testing. Results & Data Vital Signs (Past 12 Hours) Vital Signs Temp Pulse Pulse Resp BP Pulse Ox O2 Del Method 04/11/25 07:30 37.9 C H 104 H 20 140/82 99 Room Air 04/10/25 23:00 37.0 C 95 H 20 131/66 95 Room Air Queries Orthopedic Spine Obesity: Yes
[2025-04-11 08:25] LABS: Hematocrit (blood only) 32.9 % (37.0-47.0); Hemoglobin 11.5 g/dl (12.0-16.0); Mean Corpuscular Hemoglobin 33.0 pg (25.0-34.0); Mean Corpuscular Volume 94.3 fL (80.0-100.0); Platelet Count 157 K/uL (130-400); RDW Standard Deviation 46.4 fL (36.4-46.3); Red Blood Count 3.49 M/uL (4.20-5.40); White Blood Count 6.89 K/ul (4.8-10.8)
[2025-04-11 08:53] LABS: Anion Gap 6.0 (3-11); Blood Urea Nitrogen 15.0 mg/dl (6-23); Calcium 8.3 mg/dl (8.6-10.3); Carbon Dioxide 27.0 mmol/L (21-32); Chloride 104.0 mmol/L (98-107); Creatinine Clr Calc Pharmacy 94.7 ml/min; Glucose 100.0 mg/dl (70-99(Fasting)); Potassium 3.7 mmol/L (3.5-5.1); Sodium 137.0 mmol/L (136-145)
[2025-04-11] MEDS: ONDANSETRON 4 MG OD TAB PO PRN (19:25)
[2025-04-11 22:58] VITALS: RESP 18
[2025-04-12] MEDS: REMOVE TRANSDERM-SCOP PATCH ONE (06:19)
[2025-04-12 07:23] VITALS: BP 139/85; PULSE 76; TEMP 98.6; O2SAT 95
--- NOTE | 2025-04-12 08:22 | Discharge Summary ---
Date of Service April 12, 2025 Admission HPI Per Admitting Provider This is a 54-year-old female who presents with chronic persistent back and leg pain after failing course of nonoperative care is here for surgical invention. Principal Diagnosis Lumbar spondylosis with radiculopathy Discharge Data Allergies Allergy/AdvReac Type Severity Reaction Status Date / Time gabapentin Allergy Mild Itchy rash Verified 04/09/25 07:53 latex Allergy Mild Itchy rash Verified 04/09/25 07:53 meloxicam [From Mobic] Allergy Mild Itching Verified 04/09/25 07:53 Consultations 04/09/25 14:51 Consult Hospitalist Routine Procedures Performed Operation Date: 04/09/25 09:05 Actual Procedures p L1-L2 Decompression, L2-S1 Exploration, T12-L2 Fusion, Spinal Cord Monitoring(Not Applicable) - Fermin Richardson DO Ordered Studies 04/09/25 09:05 FL lumbar spine 2-3V Routine Hospital Course (1) Other spondylosis with radiculopathy, lumbar region: Patient underwent lumbar decompression fusion trial as well as taken to orthopedic for postoperative. Postop patient progressed appropriate. Marked improvement of her back and leg symptoms. Tolerating physical therapy. JAH drain decreasing. Extra strength testing. Pain controlled. Subsidy discharged home. Discharge orders and instructions from the chart for further review. Total Time Total Time Spent Total Time Spent (In Minutes): 20 minutes Discharge Plan Discharge Items Patient Disposition: Home - Self-Care Reason For Visit: Lumbar Disc Disease, Fusion of Spine Lumbar Region Discharge Diagnosis: Lumbar spondylosis with radiculopathy Activity: As commented below Non-emergency contact: Primary Care Provider Call non-emergency contact if: you have any medication questions Follow-up/Referrals: Kayleigh Lugo DO [Primary Care Provider] - Diet: Regular Addtl Attending Provider Instructions: ACTIVITY RECOMMENDATIONS: SELF CARE INSTRUCTIONS AFTER THORACIC/LUMBAR FUSIONS 1. You may walk to your tolerance. It is good exercise for your legs and back. Expect some back and intermittent leg aches and pains. 2. You may perform "counter-top" level activities (make a sandwich, gladys with a project, etc.). 3. No bending or lifting of more than 10 pounds or back twisting of any nature (roll like a log when turning in bed). 4. You may ride in a car for 20-30 minutes at a time. No driving until after your first visit with your doctor. 5. Frequent changes of position and restricting sitting to 30 minutes at a time will help limit the amount of back spasms and stiffness you may experience. 6. You may discontinue the use of ambulatory aids (cane, crutches, etc.) once your strength and confidence allow. 7. You may manager monitoring the shower and let water strike your incision when you arrive home at least once daily. Do not take a tub bath, sit in a hot tub or go into a swimming pool until after your first recheck in the office. 8. You may resume previous diet. SPECIAL CARE INSTRUCTIONS: VERY IMPORTANT TO READ AND REVIEW A. Your surgical incision has been closed with a cosmetic suture under the skin that will dissolve in about 6 weeks. In 14 days, you can use a pair of clean scissors and cut the suture that is left outside of the skin at the ends of your incision. 1. The small skin tapes can be removed 7 days after surgery if they have not fallen off by that point. 2. You may keep the wound open to air as much as possible to promote healing after post-op day number 5 unless told otherwise by your doctor. 3. If you think the wound looks like it is becoming infected (redness or worsening drainage) and/or you are experiencing fever, chill or worsening back pain and muscle spasms, contact the office so that we may evaluate you as soon as possible. B. Complications are uncommon, but please contact us if you have any signs or symptoms of: 1. wound infection (fever higher than 102.5 degrees F, redness, separation of wound, drainage, or increasing pain from the incision) 2. blood clots in legs (pain, swelling, redness and warmth in legs) 3. urinary tract infection (fever higher than 102.5 degrees F, burning upon urination or increased frequency of urination) 4. nerve problems (inability to walk on your toes or heels, numbness, loss of bowel or bladder control) 5. any other symptoms that concern you C. Please call the office at if you have any concerns or questions about your operation or recovery. D. No smoking! Smoking drastically decreases the chance of a solid fusion. E. Do not take any anti-inflammatory medications (Indocin, Advil, Motrin, Aspirin, Naprosyn, etc.) as these may inhibit the chance of a solid fusion. Tylenol is okay to take for pain. MANAGING PAIN AFTER SPINAL SURGERY 1. Narcotic medication is intended for short-term use and will be provided for surgical pain. Surgical pain usually lasts for a period of 4-6 weeks. Narcotic medication includes Percocet, Vicodin, Darvocet, Tylenol #3 or Lortab. 2. Longer-term pain is more appropriately treated with non-narcotic medication such as Tylenol ES. 3. Muscle spasm is not appropriately treated with narcotics. Muscle relaxers such as Soma, Flexeril or Skelaxin can be used along with Tylenol ES. 4. Remember that we all live with some "aches and pains". This is not unusual or uncommon after an injury or as we get older. a. Back pain is expected and may include muscle spasms for 4 to 6 weeks after surgery. The pain should gradually improve. If the pain worsens for no apparent reason, please contact the office. b. Intermittent leg pain may also be experienced and should not be concerned about unless it worsens for no apparent reason. If so, please contact the office. 5. We will provide appropriate medication within the normal guidelines of their prescribed use. We will also be very cautious and aware of potential abuse and extended duration of patients' medication needs. a. Pain medications are for your comfort and to assist with sleep and rest so that the tissue can heal. They are not provided in order to return to normal activity and should not be used through the day. To do so or worsening pain at night can result from ongoing tissue damage and development of tolerance to the prescribed medicine. 6. Please allow 2-3 days to process refills. Prescriptions will not be mailed but must be picked up at the office. FOLLOW UP VISIT: Keep your scheduled follow-up appointment. Any questions, please call the office at . Pending Studies at Discharge: No Stand-Alone Forms: My EARTHTORY, Smoking Cessation Medications and NV Order Prescriptions: New tramadol 50 mg tablet 50 mg PO Q6H PRN (Reason: pain, moderate) Qty: 30 0RF oxycodone 5 mg tablet 5 mg PO Q6H PRN (Reason: pain) Qty: 30 0RF Continued multivitamin Tablet 1 tab PO QAM cyclobenzaprine 10 mg Tablet 10 mg PO HS PRN (Reason: Spasms) lisinopril 10 mg Tablet 10 mg PO QAM furosemide [Lasix] 20 mg Tablet 40 mg PO QAM pantoprazole [Protonix] 40 mg Tablet,Delayed Release (Dr/Ec) 40 mg PO QAM ondansetron HCl [Zofran] 4 mg Tablet 4 mg PO Q6H PRN (Reason: Nausea) atorvastatin 10 mg Tablet 10 mg PO HS fluoxetine 20 mg Capsule 20 mg PO QAM sennosides-docusate sodium [Senna with Docusate Sodium] 8.6-50 mg Tablet 1 tab-cap PO QAM metoprolol succinate 25 mg Tablet Extended Release 24 Hr 25 mg PO QAM ropinirole 0.5 mg Tablet 0.5 mg PO HS Rx Instructions: administer 1-3 hours before bedtime pioglitazone [Actos] 15 mg Tablet 15 mg PO QAM sulfasalazine 500 mg Tablet 1,500 mg PO BID Rx Instructions: give with food (meal/snack) Discontinued diclofenac sodium 75 mg Tablet,Delayed Release (Dr/Ec) 75 mg PO BID Discharge Orders: Discharge Order (Routine); Ordered 04/12/25 Ordered By: Fermin Richardson Admission Data Admit Date/Time: 04/09/25 11:30 Attending Provider: Fermin Richardson Admit Provider: Fermin Richardson Primary Care Provider: Kayleigh Lugo Other Providers: Azalea Tineo; Patricia Ng
[2025-04-12 08:27] LABS: Hematocrit (blood only) 35.4 % (37.0-47.0); Hemoglobin 12.0 g/dl (12.0-16.0); Mean Corpuscular Hemoglobin 32.0 pg (25.0-34.0); Mean Corpuscular Volume 94.4 fL (80.0-100.0); Platelet Count 175 K/uL (130-400); RDW Standard Deviation 45.9 fL (36.4-46.3); Red Blood Count 3.75 M/uL (4.20-5.40); White Blood Count 5.77 K/ul (4.8-10.8)
[2025-04-12 08:43] LABS: Anion Gap 7.0 (3-11); Blood Urea Nitrogen 14.0 mg/dl (6-23); Calcium 8.8 mg/dl (8.6-10.3); Carbon Dioxide 30.0 mmol/L (21-32); Chloride 100.0 mmol/L (98-107); Creatinine Clr Calc Pharmacy 103.2 ml/min; Glucose 99.0 mg/dl (70-99(Fasting)); Potassium 3.5 mmol/L (3.5-5.1); Sodium 137.0 mmol/L (136-145)
--- NOTE | 2025-04-12 11:17 | Hospitalist Progress Note ---
Date of Service April 12, 2025 Assessment & Plan (1) Other spondylosis with radiculopathy, lumbar region: (2) Diabetes mellitus, type 2: (3) GERD (gastroesophageal reflux disease): (4) Rheumatoid arthritis: (5) Hypertension: (6) Aortic stenosis: Plan 54 year old female with PMH significant for DM2, fatty liver, RA, psoriatic arthritis, ankylosing spondylosis, fibromyalgia, RLS, HTN, moderate aortic stenosis, ascending aortic aneurysm, GERD, depression/anxiety, morbid obesity, ARABELLA not on CPAP, and lumbar spondylosis with radiculopathy who underwent T12-L2 decompression and fusion on 04/09/[address] Richardson. We have been consulted for post operative medical management. Lumbar spondylosis with radiculopathy POD#2 T12-L2 decompression and fusion on 04/09/[address] Richardson Activity level, pain control, DVT prophylaxis, bowel regimen, wound/drain care per primary team Encourage incentive spirometer PT/OT recommending return home with spouse Acute blood loss anemia Preop Hgb 12.6-> 11.2->11.5 today EBL 200cc and JAH drain output 560cc so far Monitor CBC Hypotension BPs 80/50s yesterday BPs stabilized after 1L NSS Home lasix and lisinopril initially held-> resumed 04/11 Continue metoprolol Diabetes A1C earlier this month was 5.8 Home Actos on hold BSG ACHS and SSI while inpatient Glycemic pharmacy consulted Moderate aortic stenosis Follows with [facility] Echo in Aug 2024 revealed EF 60%, no regional wall motion abnormalities, moderate aortic stenosis Stable per last cardiology note Ascending aortic aneurysm Follows with [facility] in [place] Stable per last cardiology note Depression/anxiety Continue fluoxetine GERD Continue pantoprazole RLS Continue ropinirole RA/PSA/ Home sulfasalazine on hold DVT Prophylaxis: TEDs/SCDs Code Status: FULL CODE PCP: Kayleigh Lugo () Disposition: per primary team no barriers to discharge from our standpoint.; no barriers to dc from our standpoint I spent a total of 25 minutes coordinating, documenting and providing care for this patient excluding time spent in the performance of separately billed services or time spent by another provider/QHP. Admission and Anticipated Discharge Date Admission Date: April 09, 2025 Supervising Physician Co-Signing Physician Notes Patient seen and examined at bedside. She is sitting up on a chair at the side of the bed comfortably; reports pain at the incision site. reports improvement in ble radicular s/s. BP has improved, c/w home meds, monitor. BP has been stable and well controlled. I have reviewed the advanced practitioner's documentation, and I agree with, and take responsibility for the plan of care I spent a total of 15 minutes coordinating, documenting, and providing care for this patient excluding time spent in the performance of separately billed services. All of the aforementioned completed while collaborating with the assigned advanced practitioner for a full treatment plan Subjective Patient seen and examined; NAD -reports her pain is controlled. Denies any chest pain or abdominal pain. Reports being anxious to be discharged today Review of Systems Review of Systems: All systems reviewed & are unremarkable except as noted in HPI & below Physical Exam Physical Exam: General/Psych: obese, sitting in chair, NAD, conversing easily Head: normocephalic, atraumatic Eyes: normal inspection, PERRL, conjunctivae pink ENT: external ear and nose normal, oropharynx normal Neck: normal visual inspection, trachea midline Respiratory: normal respiratory effort, lungs clear to auscultation, no wheeze/rales/rhonchi, no accessory muscle use Cardiovascular: regular rate and rhythm, aortic murmur appreciated, no JVD Extremities: no cyanosis or clubbing, normal peripheral pulses, no BLE edema, sensation intact BLE Abdomen/GI: hypoactive bowel sounds, soft, nontender Neurologic/MSK: A+Ox3, motor strength 5/5, moves all extremities Skin: no rashes, normal color, warm and dry, island dressing c/d/i, JAH drain with sanguinous output Results & Data Results & Data Vital Signs (Past 12 Hours) Vital Signs Temp Pulse BP Pulse Ox O2 Del Method 04/12/25 07:21 37.0 C 76 139/85 95 Room Air Laboratory Results Laboratory Results WBC 5.77 K/ul (4.8-10.8) 04/12/25 07:53 RBC 3.75 M/uL (4.20-5.40) L 04/12/25 07:53 Hgb 12.0 g/dl (12.0-16.0) 04/12/25 07:53 Hct 35.4 % (37.0-47.0) L 04/12/25 07:53 MCV 94.4 fL (80.0-100.0) 04/12/25 07:53 MCH 32.0 pg (25.0-34.0) 04/12/25 07:53 MCHC 33.9 g/dL (32.0-36.0) 04/12/25 07:53 RDW Std Deviation 45.9 fL (36.4-46.3) 04/12/25 07:53 RDW Coeff of Asif 13.3 % (11.5-14.5) 04/12/25 07:53 Plt Count 175 K/uL (130-400) 04/12/25 07:53 MPV 9.3 fL (9.4-12.4) L 04/12/25 07:53 Immature Gran % (Auto) 0.5 % 04/10/25 07:15 Neut % (Auto) 69.1 % 04/10/25 07:15 Lymph % (Auto) 20.5 % 04/10/25 07:15 [place] % (Auto) 9.3 % 04/10/25 07:15 Eos % (Auto) 0.5 % 04/10/25 07:15 Baso % (Auto) 0.1 % 04/10/25 07:15 Neut # (Auto) 6.79 K/uL (1.40-6.50) H 04/10/25 07:15 Lymph # (Auto) 2.02 K/uL (1.20-3.40) 04/10/25 07:15 [place] # (Auto) 0.92 K/uL (0.11-0.59) H 04/10/25 07:15 Eos # (Auto) 0.05 K/uL (0.00-0.50) 04/10/25 07:15 Baso # (Auto) 0.01 K/uL (0.00-0.20) 04/10/25 07:15 Immature Gran # (Auto) 0.05 K/uL (0.01-0.20) 04/10/25 07:15 Sodium 137 mmol/L (136-145) 04/12/25 07:53 Potassium 3.5 mmol/L (3.5-5.1) 04/12/25 07:53 Chloride 100 mmol/L (98-107) 04/12/25 07:53 Carbon Dioxide 30 mmol/L (21-32) 04/12/25 07:53 Anion Gap 7 (3-11) 04/12/25 07:53 BUN 14 mg/dl (6-23) 04/12/25 07:53 Creatinine 0.78 mg/dl (0.6-1.2) 04/12/25 07:53 Est Cr Clr Drug Dosing 103.2 ml/min 04/12/25 07:53 eGFR 89.64 04/12/25 07:53 BUN/Creatinine Ratio 17.9 (10-20) 04/12/25 07:53 Glucose 99 mg/dl (70-99(Fasting)) 04/12/25 07:53 POC Glucose 91 mg/dl (70-99) 04/12/25 07:40 Calcium 8.8 mg/dl (8.6-10.3) 04/12/25 07:53 Blood Type A Positive 04/09/25 07:57 Antibody Screen NEGATIVE 04/09/25 07:57 Crossmatch See Detail 04/09/25 07:57 Impressions Lumbar Spine X-Ray 04/09/25 09:05 FL lumbar spine 2-3V CLINICAL HISTORY: L1-L2 DECOMPRESSION, T12-L2 FUSION COMPARISON STUDY: None FLUOROSCOPY TIME: 19 seconds FLUOROSCOPY IMAGES: 2 EXPOSURE DOSE: 17 mGy FINDINGS: Fluoroscopy was provided for lower thoracic and lumbar fusion. IMPRESSION: Intraoperative fluoroscopy. ACT 112: Negative or not required by law. Electronically signed by: Choco Joy M.D. 04/09/2025 11:36 AM (2) Diabetes mellitus, type 2 Diabetes mellitus complication status: with other specified complication Diabetes mellitus nursing home insulin use: without nursing home use Qualified Code(s): E11.69 - Type 2 diabetes mellitus with other specified complication (3) GERD (gastroesophageal reflux disease) Esophagitis presence: esophagitis presence not specified Qualified Code(s): K21.9 - Gastro-esophageal reflux disease without esophagitis (4) Rheumatoid arthritis Rheumatoid arthritis location: unspecified site Rheumatoid factor presence: unspecified presence Qualified Code(s): M06.9 - Rheumatoid arthritis, unspecified (5) Hypertension Hypertension type: unspecified Qualified Code(s): I10 - Essential (primary) hypertension (6) Aortic stenosis Cardiac valve disease etiology: etiology unspecified Qualified Code(s): I35.0 - Nonrheumatic aortic (valve) stenosis
== END 2025-04-12 13:33 | disposition home or self-care (01) | DRG 427 ==
LOC: ASU 07:40 → INTOOBSV 11:30 → 3N 11:30